=== PATIENT | female | born 1955 | race Caucasian/White ===

== ENCOUNTER 2016-05-01 09:00 | Emergency (ER) | payer MEDICARE ==
[~2016-05-01] VITALS: Ht 172.7 cm; Wt 65.0 kg
[~2016-05-01 09:00] MED LIST: CARV3.12 PO; COZA100T PO; LANTUSP SQ; LEVO.075 PO; LYRI50CA2 PO; MAGN250T13 PO; MYCO250 PO; OMEP20TA OR; PROG1CAP PO
[2016-05-01 09:01] VITALS: BP 178/87; PULSE 98; RESP 18; TEMP 98.2; O2SAT 98
[2016-05-01 10:12] VITALS: BP 191/100; PULSE 92; RESP 16; O2SAT 100
[2016-05-01] MEDS ORDERED: ONDANSETRON HCL 4 MG/2 ML VIAL IVP ONE (10:15)
[2016-05-01] MEDS ORDERED: SODIUM CHLORIDE 0.9% FLUSH 5 ML FLUSH IVF PRN (10:15)
[2016-05-01] MEDS ORDERED: HYDROmorphone HCL PF 1 MG/ML VIAL IVS ONE (10:15)
--- NOTE | 2016-05-01 10:21 | PD ---
HPI Chief Complaint: Flank/Kidney Pain Time Seen by Provider: 10:14 Travel History International Travel<30 days: No Contact w/Intl Traveler<30days: No Traveled to known affect area: No History of Present Illness HPI 61-year-old female with history of liver and breast cancer status post liver transplant, recent renal insufficiency and proteinuria, seen by a urologist at [facility] who did a biopsy on her yesterday of her left kidney, complicated by hematoma formation outside the renal capsule. She had been sent out because apparently they thought that the hematoma was stable, but this morning, she is experiencing hematuria, urinating clots, urinary urgency, and is having more pain in the left lower quadrant abdomen. She denies any fevers, vomiting, or other symptoms. She states her pain is currently a 5 out of 10. She denies any exacerbating or alleviating factors. Modifying Factors: None Associated Signs & Symptoms: Left lower quadrant abdominal pain, hematuria, urinary urgency Risk Factors: Renal biopsy yesterday, hematoma PFSH Past Medical History Anemia: Yes Arthritis: Yes Autoimmune Disease: No Cancer: Yes (left breast cancer liver) Cardiovascular Problems: No Chemotherapy: Yes (past 9 years ago for breast ca) Cirrhosis: Yes (AT HEP C) Diabetes: Yes Patient Takes Glucophage: Yes Diminished Hearing: No Endocrine: Yes (DIABETES) Gastrointestinal Disorders: Yes (hx of esophageal variosis) Glaucoma: No Genitourinary: No Hepatitis: Yes (c cirrhosis) Hiatal Hernia: No Hypertension: Yes Immune Disorder: No Medical other: Yes (GERD ; ARTHRITIS) Musculoskeletal: Yes (rheumatoid arthritis) Neurologic: No Psychiatric: Yes (anxiety) Reproductive: No Respiratory: No Immunizations Current: Yes Thyroid Disease: Yes Tetanus Vaccination: < 5 Years ?: Not : 1 Para: 2 Past Surgical History Abdominal Surgery: Yes (radiated tumor on the liver removed liver transplant) AICD: No Body Medical Devices: left breast Gynecologic Surgery: Yes (hysterectomy) Hysterectomy: Yes Joint Replacement: No Mastectomy: Yes (left) Pacemaker: No Thoracic Surgery: Yes (left breast mastectomy with reconstruction) Other Surgery: Yes (LEFT MASTECTOMY 2006; 2008 LEFT RECONSTRUCTION implant both ) Social History Alcohol Use: No Tobacco Use: No Substance Use: No Allergies-Medications (Allergen,Severity, Reaction): Coded Allergies: Shellfish (Verified Allergy, Severe, THROAT SWELLS UP, HIVES, 05/01/16) Nonsteroidal Anti-Inflammatory Agts (Verified Adverse Reaction, Severe, NAUSEA, DIZZINESS, 05/01/16) Zoloft (Verified Adverse Reaction, Severe, Nausea/Vomiting, 05/01/16) DIZZINESS Reglan (Unverified Adverse Reaction, Intermediate, NAUSEA AND VOMITING, 12/08) Uncoded Allergies: ZELNORM (Adverse Reaction, Severe, Nausea/Vomiting, 10/17/08) Reported Meds & Prescriptions Reported Meds & Active Scripts Active Reported Zolpidem (Zolpidem Tartrate) 10 Mg Tab 10 Mg PO HS PRN Prograf (Tacrolimus) 1 Mg Cap 1 Mg PO BID Sodium Bicarbonate 650 Mg Tab 650 Mg PO BID Lyrica (Pregabalin) 50 Mg Cap 50 Mg PO BID Polyethylene Glycol 300 1 Liq Liq Unknown Dose PO DAILY PRN Oxycodone (Oxycodone HCl) 5 Mg Cap 5 Mg PO Q8H PRN Omeprazole 20 Mg Tab 20 Mg PO DAILY Mycophenolate (Mycophenolate Mofetil) 250 Mg Cap 500 Mg PO BID Metformin (Metformin HCl) 500 Mg Tab 500 Mg PO DAILY With a meal Magnesium Oxide 400 Mg Cap 400 Mg PO DAILY Losartan (Losartan Potassium) 50 Mg Tab 50 Mg PO BID Lorazepam 1 Mg Tab 1 Mg PO BID Levothyroxine (Levothyroxine Sodium) 75 Mcg Tab 75 Mcg PO DAILY Carvedilol 3.125 Mg Tab 3.125 Mg PO BID Amlodipine (Amlodipine Besylate) 5 Mg Tab 5 Mg PO DAILY Review of Systems Except as stated in HPI: all other systems reviewed are Neg Physical Exam Narrative GENERAL: Elderly white female patient who is currently in mild distress. Awake , alert, oriented 3. SKIN: Warm and dry. HEAD: Atraumatic. Normocephalic. EYES: Pupils equal and round. No scleral icterus. No injection or drainage. ENT: No nasal bleeding or discharge. Mucous membranes pink and moist. NECK: Trachea midline. No JVD. CARDIOVASCULAR: Regular rate and rhythm. No murmur appreciated. RESPIRATORY: No accessory muscle use. Clear to auscultation. Breath sounds equal bilaterally. GASTROINTESTINAL: Abdomen soft, left lower quadrant tenderness without guarding or rebound, nondistended. Hepatic and splenic margins not palpable. MUSCULOSKELETAL: No obvious deformities. No clubbing. No cyanosis. No edema. NEUROLOGICAL: Awake and alert. No obvious cranial nerve deficits. Motor grossly within normal limits. Normal speech. PSYCHIATRIC: Appropriate mood and affect; insight and judgment normal. Data Data Last Documented VS Vital Signs Date Time Temp Pulse Resp B/P Pulse Ox O2 Delivery O2 Flow Rate FiO2 05/01/16 11:44 81 14 155/84 98 Room Air 05/01/16 09:01 98.2 Orders Urinalysis - C+S If Indicated (05/01/16 09:32) Complete Blood Count With Diff (05/01/16 10:14) Comprehensive Metabolic Panel (05/01/16 10:14) Lipase (05/01/16 10:14) Ct Abd/Pel W Iv Contrast(Rout) (05/01/16 10:14) Iv Access Insert/Monitor (05/01/16 10:14) Ecg Monitoring (05/01/16 10:14) Oximetry (05/01/16 10:14) Ondansetron Inj (Zofran Inj) (05/01/16 10:15) Sodium Chloride 0.9% Flush (Ns Flush) (05/01/16 10:15) Hydromorphone Pf Inj (Dilaudid Pf Inj) (05/01/16 10:15) Urine Culture (05/01/16 10:50) Iodixanol 320 Inj (Rad Ct) (Visipaque 32 (05/01/16 12:51) Urinary Catheter Insert/Apply (05/01/16 13:12) Labs Laboratory Tests Test 05/01/16 05/01/16 10:30 10:50 White Blood Count 7.8 TH/MM3 Red Blood Count 3.83 MIL/MM3 Hemoglobin 11.2 GM/DL Hematocrit 32.1 % Mean Corpuscular Volume 83.9 FL Mean Corpuscular Hemoglobin 29.4 PG Mean Corpuscular Hemoglobin 35.0 % Concent Red Cell Distribution Width 12.9 % Platelet Count 199 TH/MM3 Mean Platelet Volume 7.0 FL Neutrophils (%) (Auto) 78.5 % Lymphocytes (%) (Auto) 10.3 % Monocytes (%) (Auto) 7.9 % Eosinophils (%) (Auto) 2.8 % Basophils (%) (Auto) 0.5 % Neutrophils # (Auto) 6.1 TH/MM3 Lymphocytes # (Auto) 0.8 TH/MM3 Monocytes # (Auto) 0.6 TH/MM3 Eosinophils # (Auto) 0.2 TH/MM3 Basophils # (Auto) 0.0 TH/MM3 CBC Comment DIFF FINAL Differential Comment Sodium Level 137 MEQ/L Potassium Level 4.1 MEQ/L Chloride Level 105 MEQ/L Carbon Dioxide Level 23.4 MEQ/L Anion Gap 9 MEQ/L Blood Urea Nitrogen 19 MG/DL Creatinine 1.68 MG/DL Estimat Glomerular Filtration 31 ML/MIN Rate Random Glucose 132 MG/DL Calcium Level 8.4 MG/DL Total Bilirubin 0.5 MG/DL Aspartate Amino Transf 12 U/L (AST/SGOT) Alanine Aminotransferase 15 U/L (ALT/SGPT) Alkaline Phosphatase 56 U/L Total Protein 6.3 GM/DL Albumin 3.1 GM/DL Lipase 105 U/L Urine Color YELLOW Urine Turbidity CLOUDY Urine pH 6.0 Urine Specific [place] 1.006 Urine Protein 100 mg/dL Urine Glucose (UA) NEG mg/dL Urine Ketones NEG mg/dL Urine Occult Blood MOD Urine Nitrite NEG Urine Bilirubin NEG Urine Urobilinogen LESS THAN 2.0 MG/DL Urine Leukocyte Esterase SMALL Urine RBC 2 /hpf Urine WBC 6 /hpf Urine Renal Epithelial Cells /hpf Urine Bacteria MANY /hpf Microscopic Urinalysis Comment CULTURE INDICATED MDM Medical Decision Making Medical Screen Exam Complete: Yes Emergency Medical Condition: Yes Medical Record Reviewed: Yes Interpretation(s) Laboratory Tests Test 05/01/16 05/01/16 10:30 10:50 Red Blood Count 3.83 MIL/MM3 (4.00-5.30) Hemoglobin 11.2 GM/DL (11.6-15.3) Hematocrit 32.1 % (35.0-46.0) Neutrophils (%) (Auto) 78.5 % (16.0-70.0) Lymphocytes # (Auto) 0.8 TH/MM3 (1.0-4.8) Blood Urea Nitrogen 19 MG/DL (7-18) Creatinine 1.68 MG/DL (0.50-1.00) Estimat Glomerular Filtration 31 ML/MIN (>89) Rate Random Glucose 132 MG/DL (74-106) Calcium Level 8.4 MG/DL (8.5-10.1) Aspartate Amino Transf 12 U/L (15-37) (AST/SGOT) Total Protein 6.3 GM/DL (6.4-8.2) Albumin 3.1 GM/DL (3.4-5.0) Urine Turbidity CLOUDY (CLEAR) Urine Protein 100 mg/dL (NEG-TRACE) Urine Occult Blood MOD (NEG) Urine Leukocyte Esterase SMALL (NEG) Urine WBC 6 /hpf (0-5) Urine Bacteria MANY /hpf (NONE) Last 24 hours Impressions Abdomen/Pelvis CT 05/01/16 1014 Signed Impressions: Service Date/Time: Sunday, May 01, 2016 12:40 - CONCLUSION: 1. There is a small left perinephric hematoma surrounding the lower pole and within the inferior left perinephric space. No active extravasation is visualized and no collecting system injury is seen. The degree of blood products is not uncommon following kidney biopsy. It would be helpful to correlate with the postprocedure images to determine if it has increased. If clinically needed and symptoms persist consider followup CT to assess for change. 2. There are findings characteristic of prior liver transplantation, as above. 3. Urinary bladder remains distended even though a Garcia catheter is present. Suggest correlation clinically to ensure that it is not clamped. David Gonzalez MD Differential Diagnosis Left lower quadrant abdominal pain, nauseaenlarging hematoma versus postprocedural pain versus pyelonephritis/UTI versus other acute intra- abdominal processes Narrative Course Patient was given IV pain medication and Zofran. CAT scan ordered for further evaluation. It shows perinephric hematoma without active extravasation. Patient does have a UTI on lab work. Her BUN and creatinine is somewhat elevated, he'll which is the reason she was getting the renal biopsy done. The case was discussed with her urologist, Dr. Lemus, and at this point, there does not appear to be any acute issues. He agrees that the patient can be followed up as an outpatient with him, treatment for UTI. Return for any worsening in pain, or new symptoms as needed. The plan has been discussed with her and she states understanding. Diagnosis Primary Impression: UTI (urinary tract infection) Additional Impression: Perinephric hematoma Med/Other Pt SpecificInfo: Prescription(s) given Scripts Cephalexin (Keflex)500 Mg Izb113 Mg PO Q6H 7 Days Ref 0 Prov:Yaquelin Jeong MD 05/01/16 Disposition: 01 DISCHARGE HOME Condition: Stable Yaquelin Jeong MD May 01, 2016 10:21
[2016-05-01 10:37] LABS: AUTOMATED NEUTROPHIL # 6.1 TH/MM3 (1.8-7.7); BASOPHIL % 0.5 % (0.0-2.0); EOSINOPHIL # 0.2 TH/MM3 (0-0.4); EOSINOPHIL % 2.8 % (0.0-4.0); HEMATOCRIT 32.1 % (35.0-46.0); HEMO FLAGS DIFF FINAL; LYMPH % 10.3 % (9.0-44.0); LYMPHOCYTE # 0.8 TH/MM3 (1.0-4.8); MEAN CELL VOLUME 83.9 FL (80.0-100.0); MEAN CORPUSCULAR HEMOGLOBIN 29.4 PG (27.0-34.0); MONO % 7.9 % (0.0-8.0); NEUT % 78.5 % (16.0-70.0); PLATELET COUNT 199 TH/MM3 (150-450); RED BLOOD COUNT 3.83 MIL/MM3 (4.00-5.30); RED CELL DISTRIBUTION WIDTH 12.9 % (11.6-17.2); WHITE BLOOD COUNT 7.8 TH/MM3 (4.0-11.0)
[2016-05-01 10:38] VITALS: BP 163/99; PULSE 86; RESP 16; O2SAT 98
[2016-05-01 10:48] LABS: ANION GAP 9 MEQ/L (5-15); BICARBONATE 23.4 MEQ/L (21.0-32.0); BLOOD UREA NITROGEN 19 MG/DL (7-18); CHLORIDE 105 MEQ/L (98-107); GLOMERULAR FILTRATION RATE 31 ML/MIN (>89); POTASSIUM 4.1 MEQ/L (3.5-5.1); SODIUM (NA) 137 MEQ/L (136-145)
[2016-05-01 10:51] LABS: ALKALINE PHOSPHATASE 56 U/L (45-117); ALT (GPT) 15 U/L (10-53); AST (GOT) 12 U/L (15-37); TOTAL BILIRUBIN ADULT 0.5 MG/DL (0.2-1.0)
[2016-05-01 11:13] LABS: BACTERIA, URINE MANY /hpf; BLOOD, URINE MOD (NEG); GLUCOSE,URINE NEG (NEG); KETONE, URINE NEG (NEG); NITRITE,URINE NEG (NEG)
[2016-05-01 11:14] LABS: URINE COLOR YELLOW (YELLW/STRAW)
[2016-05-01 11:15] LABS: COMMENT (UR) CULTURE INDICATED; CULTURE IF INDICATED CULTURE INDICATED
[2016-05-01 11:44] VITALS: BP 155/84; PULSE 81; RESP 14; O2SAT 98
[2016-05-01] MEDS ORDERED: LOSA50TA PO (12:46)
[2016-05-01] MEDS ORDERED: MYCO250C PO (12:46)
[2016-05-01] MEDS ORDERED: OXYC1CAP PO (12:46)
[2016-05-01] MEDS ORDERED: OMEP20TA PO (12:46)
[2016-05-01] MEDS ORDERED: CARV3.12 PO (12:46)
[2016-05-01] MEDS ORDERED: [UNRECOGNIZED DRUG - CODE] PO (12:46)
[2016-05-01] MEDS ORDERED: LORA1TAB12 PO (12:46)
[2016-05-01] MEDS ORDERED: SODI650T PO (12:46)
[2016-05-01] MEDS ORDERED: LYRI50CA PO (12:46)
[2016-05-01] MEDS ORDERED: TACR1 PO (12:46)
[2016-05-01] MEDS ORDERED: ZOLP10TA3 PO (12:46)
[2016-05-01] MEDS ORDERED: LEVO75TA3 PO (12:46)
[2016-05-01] MEDS ORDERED: MAGN400C2 PO (12:46)
[2016-05-01] MEDS ORDERED: METF500T PO (12:46)
[2016-05-01] MEDS ORDERED: AMLO5TAB2 PO (12:46)
[2016-05-01] MEDS ORDERED: IODIXANOL 320 MG/ML 10 ML VIAL (for Rad CT) IV ONE (12:51)
--- NOTE | 2016-05-01 13:16 | RADRPT ---
EXAM DATE/TIME: 05/01/2016 12:40 [facility] COMPARISON: No previous studies available for comparison. INDICATIONS : Left lower quadrant pain and hematuria following kidney biopsy yesterday. IV CONTRAST: 50 cc Visipaque (iodixanol) IV ORAL CONTRAST: No oral contrast ingested. RADIATION DOSE: 8.21 CTDIvol (mGy) MEDICAL HISTORY : Carcinoma, breast. Cirrhosis. Hepatitis C.Hypertension, diabetes. SURGICAL HISTORY : Mastectomy, left. Hysterectomy.Liver transplant. ENCOUNTER: Initial ACUITY: 1 day PAIN SCALE: 6/10 LOCATION: Left lower quadrant TECHNIQUE: Volumetric scanning of the abdomen and pelvis was performed. Using automated exposure control and ad justment of the mA and/or kV according to patient size, radiation dose was kept as low as reasonably achievable to obtain optimal diagnostic quality images. Delayed imaging through the kidneys were obta ined. FINDINGS: LOWER LUNGS: The visualized lower lungs are clear. Partially visualized left breast implant is present. LIVER: Measures 17 cm in length. No focal lesion is seen. There are multiple clips at the liver IVC junction characteristic of prior liver transplant. There also multiple clips in the latoya hepatis region. Mil d pneumobilia is present. No gallbladder is visualized. There is no dilation of the biliary tree. SPLEEN: Normal size without lesion. PANCREAS: Within normal limits. KIDNEYS: Normal in size and shape. There is no mass, stone or hydronephrosis. There is a small left perinephr ic hematoma posteriorly and inferior leads are on the left kidney and inferior perinephric space. No active extravasation is identified and delayed imaging through the kidneys demonstrates no collecting system injury. ADRENAL GLANDS: Within normal limits. VASCULAR: There is no aortic aneurysm. There is mild atherosclerotic disease. BOWEL/MESENTERY: The stomach, small bowel, and colon demonstrate no acute abnormality. There is no free intraperitone al air or fluid. ABDOMINAL WALL: Within normal limits. RETROPERITONEUM: There is no lymphadenopathy. BLADDER: Garcia catheter is present within the urinary bladder and bladder remains distended with urine. No wal l thickening or mass. REPRODUCTIVE: The uterus is absent. No adnexal abnormality is seen. INGUINAL: There is no lymphadenopathy or hernia. MUSCULOSKELETAL: There are mild degenerative changes of the lumbar spine with mild leftward convex curvature. CONCLUSION: 1. There is a small left perinephric hematoma surrounding the lower pole and within the inferior left perinephric space. No active extravasation is visualized and no collecting system injury is seen. Th e degree of blood products is not uncommon following kidney biopsy. It would be helpful to correlate with the postprocedure images to determine if it has increased. If clinically needed and symptoms per sist consider followup CT to assess for change. 2. There are findings characteristic of prior liver transplantation, as above. 3. Urinary bladder remains distended even though a Garcia catheter is present. Suggest correlation cli nically to ensure that it is not clamped. David Gonzalez MD on May 01, 2016 at 13:07 Board Certified Radiologist. This report was verified electronically.
[2016-05-01] MEDS ORDERED: CEPH-460 PO (13:31)
[2016-05-01] MEDS ORDERED: ZOFR4TAB3 SL (13:36)
== END 2016-05-01 13:50 | disposition home or self-care (01) ==
LOC: NEPE 09:00
DX: N39.0 Urinary tract infection, site not specified (principal); S37.012A Minor contusion of left kidney, initial encounter; Z98.890 Other specified postprocedural states; R10.32 Left lower quadrant pain; E11.9 Type 2 diabetes mellitus without complications; I10 Essential (primary) hypertension; E07.9 Disorder of thyroid, unspecified; Z86.2 Personal history of diseases of the blood and blood-forming organs and certain disorders involving the immune mechanism; Z87.39 Personal history of other diseases of the musculoskeletal system and connective tissue; Z85.3 Personal history of malignant neoplasm of breast; Z85.05 Personal history of malignant neoplasm of liver; Z87.19 Personal history of other diseases of the digestive system; Z86.59 Personal history of other mental and behavioral disorders
CPT/HCPCS: 51702; 74177; 80053; 81001; 83690; 85025; 87086; 96374; 96375; 99284; J1170; J2405; Q9967

== ENCOUNTER 2017-01-10 08:48 | Emergency (ER) | payer MEDICARE ==
[~2017-01-10] VITALS: Ht 172.7 cm; Wt 69.7 kg
[~2017-01-10 08:48] MED LIST changes: +AMLO5TAB2 PO; +CEPH-460 PO; -COZA100T PO; -LANTUSP SQ; -LEVO.075 PO; +LEVO75TA3 PO; +LORA1TAB12 PO; +LOSA50TA PO; +LYRI50CA PO; -LYRI50CA2 PO; -MAGN250T13 PO; +MAGN400C2 PO; +METF500T PO; -MYCO250 PO; +MYCO250C PO; -OMEP20TA OR; +OMEP20TA93 PO; +OXYC1CAP PO; -PROG1CAP PO; +SODI650T PO; +TACR1 PO; +ZOFR4TAB3 SL; +ZOLP10TA3 PO; +[UNRECOGNIZED DRUG - CODE] PO
[2017-01-10 08:50] VITALS: BP 158/81; PULSE 90; RESP 16; TEMP 98.1; O2SAT 97
[2017-01-10] MEDS ORDERED: MAGO400T2 PO (09:12)
[2017-01-10] MEDS ORDERED: SERT25TA83 PO (09:12)
[2017-01-10] MEDS ORDERED: ACETAMINOPHEN/HYDROcodone 325 MG/5 MG TAB PO ONE (09:15)
--- NOTE | 2017-01-10 09:16 | PD ---
HPI Chief Complaint: Headache Time Seen by Provider: 09:13 Travel History International Travel<30 days: No Contact w/Intl Traveler<30days: No History of Present Illness HPI Patient presents with complaints of headache behind her right eye for 3 days. States his worst headache she's ever had. No history of migraines. Positive photophobia. Denies nausea or vomiting. Denies aura. Denies any head trauma. Patient took Last night without relief. PFSH Past Medical History Anemia: Yes Arthritis: Yes Autoimmune Disease: No Cancer: Yes (left breast cancer liver) Cardiovascular Problems: No Chemotherapy: Yes (past 9 years ago for breast ca) Cirrhosis: Yes (AT HEP C) Diabetes: Yes Diminished Hearing: No Endocrine: Yes (DIABETES) Gastrointestinal Disorders: Yes (hx of esophageal variosis) Glaucoma: No Genitourinary: No Hepatitis: Yes (c cirrhosis) Hiatal Hernia: No Hypertension: Yes Immune Disorder: No Musculoskeletal: Yes (rheumatoid arthritis) Neurologic: No Psychiatric: Yes (anxiety) Reproductive: No Respiratory: No Immunizations Current: Yes Thyroid Disease: Yes : 1 Para: 2 Past Surgical History Abdominal Surgery: Yes (radiated tumor on the liver removed liver transplant) AICD: No Body Medical Devices: left breast Gynecologic Surgery: Yes (hysterectomy) Hysterectomy: Yes Joint Replacement: No Mastectomy: Yes (left) Pacemaker: No Thoracic Surgery: Yes (left breast mastectomy with reconstruction) Other Surgery: Yes (LEFT MASTECTOMY 2006; 2008 LEFT RECONSTRUCTION implant both ) Social History Alcohol Use: No Tobacco Use: No Substance Use: No Allergies-Medications (Allergen,Severity, Reaction): Coded Allergies: shellfish derived (Unverified Allergy, Severe, THROAT SWELLS UP, HIVES, ) diclofenac (Unverified Adverse Reaction, Severe, NAUSEA, DIZZINESS, ) etodolac (Unverified Adverse Reaction, Severe, NAUSEA, DIZZINESS, 01/10/17 ) flurbiprofen (Unverified Adverse Reaction, Severe, NAUSEA, DIZZINESS, ) ibuprofen (Unverified Adverse Reaction, Severe, NAUSEA, DIZZINESS, ) indomethacin (Unverified Adverse Reaction, Severe, NAUSEA, DIZZINESS, ) ketoprofen (Unverified Adverse Reaction, Severe, NAUSEA, DIZZINESS, ) ketorolac (Unverified Adverse Reaction, Severe, NAUSEA, DIZZINESS, ) naproxen (Unverified Adverse Reaction, Severe, NAUSEA, DIZZINESS, 01/10/17 ) oxaprozin (Unverified Adverse Reaction, Severe, NAUSEA, DIZZINESS, ) sertraline (Unverified Adverse Reaction, Severe, Nausea/Vomiting, 01/10/17 ) DIZZINESS metoclopramide (Unverified Adverse Reaction, Intermediate, NAUSEA AND VOMITING, 01/10/17) Uncoded Allergies: ZELNORM (Adverse Reaction, Severe, Nausea/Vomiting, 10/17/08) Reported Meds & Prescriptions Reported Meds & Active Scripts Active Reported Magox 400 (Magnesium Oxide) 400 Mg Tablet 1 Tab PO DAILY Sertraline (Sertraline HCl) 25 Mg Tab 25 Mg PO DAILY Zolpidem (Zolpidem Tartrate) 10 Mg Tab 10 Mg PO HS PRN Prograf (Tacrolimus) 1 Mg Cap 1 Mg PO BID Lyrica (Pregabalin) 50 Mg Cap 50 Mg PO BID Omeprazole 20 Mg Tab 20 Mg PO DAILY Mycophenolate (Mycophenolate Mofetil) 250 Mg Cap 500 Mg PO QID Metformin (Metformin HCl) 500 Mg Tab 500 Mg PO DAILY With a meal Losartan (Losartan Potassium) 50 Mg Tab 50 Mg PO BID Lorazepam 1 Mg Tab 1 Mg PO BID Levothyroxine (Levothyroxine Sodium) 75 Mcg Tab 75 Mcg PO DAILY Carvedilol 3.125 Mg Tab 3.125 Mg PO BID Review of Systems General / Constitutional: No: Fever Eyes: No: Visual changes HENT: Positive: Headaches Cardiovascular: No: Chest Pain or Discomfort Respiratory: No: Shortness of Breath Gastrointestinal: No: Abdominal Pain Genitourinary: No: Dysuria Musculoskeletal: No: Pain Skin: No Rash Neurologic: No: Weakness Psychiatric: No: Depression Endocrine: No: Polydipsia Hematologic/Lymphatic: No: Easy Bruising Physical Exam Narrative GENERAL: Well-nourished SKIN: Focused skin assessment warm/dry. HEAD: Atraumatic. Normocephalic. EYES: Pupils equal and round. No scleral icterus. No injection or drainage. ENT: No nasal bleeding or discharge. Mucous membranes pink and moist. NECK: Trachea midline. No JVD. CARDIOVASCULAR: Regular rate and rhythm. No murmur appreciated. RESPIRATORY: No accessory muscle use. Clear to auscultation. Breath sounds equal bilaterally. GASTROINTESTINAL: Abdomen soft, non-tender, nondistended. Hepatic and splenic margins not palpable. MUSCULOSKELETAL: No obvious deformities. No clubbing. No cyanosis. No edema. NEUROLOGICAL: Awake and alert. No obvious cranial nerve deficits. Motor grossly within normal limits. Normal speech. PSYCHIATRIC: Appropriate mood and affect; insight and judgment normal. Data Data Last Documented VS Vital Signs Date Time Temp Pulse Resp B/P (MAP) Pulse Ox O2 Delivery O2 Flow Rate FiO2 01/10/17 13:33 132/77 (95) 01/10/17 13:10 74 18 97 Room Air 01/10/17 08:[address] Brain W/O Iv Contrast(Rout) (01/10/17 ) Acetamin-Hydrocod 325-5 Mg (Evans 5-325 (01/10/17 09:15) Hydromorphone Pf Inj (Dilaudid Pf Inj) (01/10/17 10:00) Ondansetron Inj (Zofran Inj) (01/10/17 10:00) Hydromorphone Pf Inj (Dilaudid Pf Inj) (01/10/17 11:15) Ondansetron Inj (Zofran Inj) (01/10/17 11:15) Clonidine (Catapres) (01/10/17 12:30) MDM Medical Decision Making Medical Screen Exam Complete: Yes Emergency Medical Condition: Yes Differential Diagnosis Cluster headache, tension headache, migraine headache, CVA Narrative Course Assessment and plan discussed with patient at bedside. Last [address] 01/10/17 0000 Signed Impressions: Service Date/Time: Tuesday, January 10, 2017 09:25 - CONCLUSION: Normal noncontrast head CT. David Sánchez MD Headache resolved with Dilaudid and Zofran. Patient continues to have some right eye pain without significant visual changes. 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 Diagnosis Primary Impression: Headache Qualified Codes: R51 - Headache Patient Instructions: General Instructions Additional Instructions: Encouraged rest fluids and Motrin. Keep regular scheduled appointment with ophthalmology. Follow-up with PCP. Return to emergency with any onset of new symptoms. Med/Other Pt SpecificInfo: No Meds Exist/No RX given Disposition: DISCHARGE HOME Condition: Good Beau Riggs MD Jan 10, 2017 09:16
--- NOTE | 2017-01-10 09:38 | RADRPT ---
EXAM DATE/TIME: 01/10/2017 09:25 [facility] COMPARISON: No previous studies available for comparison. INDICATIONS : Right sided headache radiating to right facial area. RADIATION DOSE: 59.69 CTDIvol (mGy) MEDICAL HISTORY : Carcinoma, breast. Hepatitis C. Cirrhosis.Hypertension. Liver tumor. Diabetes. SURGICAL HISTORY : Mastectomy, left. Hysterectomy.Tumor removed from liver. Cataract. ENCOUNTER: Initial ACUITY: 3 days PAIN SCALE: 8/10 LOCATION: Right cranial TECHNIQUE: Multiple contiguous axial images were obtained of the head. Using automated exposure control and adj ustment of the mA and/or kV according to patient size, radiation dose was kept as low as reasonably a chievable to obtain optimal diagnostic quality images. DICOM format image data is available electro nically for review and comparison. FINDINGS: CEREBRUM: The ventricles are normal for age. No evidence of midline shift, mass lesion, hemorrhage or acute in farction. No extra-axial fluid collections are seen. POSTERIOR FOSSA: The cerebellum and brainstem are intact. The 4th ventricle is midline. The cerebellopontine angle i s unremarkable. EXTRACRANIAL: The visualized portion of the orbits is intact. SKULL: The calvaria is intact. No evidence of skull fracture. CONCLUSION: Normal noncontrast head CT. David Sánchez MD on January 10, 2017 at 9:35 Board Certified Radiologist. This report was verified electronically.
[2017-01-10] MEDS ORDERED: ONDANSETRON HCL 4 MG/2 ML VIAL IV PUSH ONE ×2 (10:00→11:15)
[2017-01-10] MEDS ORDERED: HYDROmorphone HCL PF 0.5 MG/0.5 ML SYRINGE IV PUSH ONE ×2 (10:00→11:15)
[2017-01-10 10:11] VITALS: BP 160/98; PULSE 77; RESP 18; O2SAT 95
[2017-01-10 10:42] VITALS: BP 165/97; PULSE 72; RESP 18; O2SAT 97
[2017-01-10 12:07] VITALS: BP 170/95; PULSE 63; RESP 18; O2SAT 97
[2017-01-10] MEDS ORDERED: cloNIDine HCL 0.1 MG TAB PO ONE (12:30)
[2017-01-10 13:10] VITALS: BP 175/92; PULSE 74; RESP 18; O2SAT 97
[2017-01-10 13:33] VITALS: BP 132/77
== END 2017-01-10 14:12 | disposition home or self-care (01) ==
LOC: PHED 08:48
DX: R51 Headache (principal); E11.9 Type 2 diabetes mellitus without complications; I10 Essential (primary) hypertension; Z85.3 Personal history of malignant neoplasm of breast; Z79.84 Long term (current) use of oral hypoglycemic drugs
CPT/HCPCS: 70450; 96374; 96375; 96376; 99285; J1170; J2405

== ENCOUNTER 2017-12-22 14:56 | Observation (INO) ==
[2017-12-22] MEDS ORDERED: hydrALAZINE HCl Inj 20 MG/ML Vial IV.PUSH ONE (15:57)
[2017-12-22 16:14] LABS: Baso # (Auto) 0.2 th/mm3 (0.0-0.2); Baso % (Auto) 3.2 % (0.0-2.0); Eos # (Auto) 0.3 th/mm3 (0.0-0.4); Hematocrit 33.8 % (35.0-46.0); Hemoglobin 11.9 gm/dL (11.6-15.3); Mean Corpuscular HGB Conc 35.2 % (32.0-36.0); Mean Corpuscular Hemoglobin 30.6 pg (27.0-34.0); Mean Corpuscular Volume 87.1 fL (80.0-100.0); Mean Platelet Volume 7.9 fL (7.0-11.0); Mono # (Auto) 0.5 th/mm3 (0.0-0.9); Mono % (Auto) 9.5 % (0.0-8.0); Neut # (Auto) 3.4 th/mm3 (1.8-7.7); Neut % (Auto) 63.3 % (16.0-70.0); Platelet Count 229 th/mm3 (150-450); Red Blood Count 3.88 mil/mm3 (4.00-5.30); Red Cell Distribution Width 13.3 % (11.6-17.2); White Blood Count 5.4 th/mm3 (4.0-11.0)
[2017-12-22 16:25] LABS: Chloride 103 meq/L (98-107); Potassium 4.4 meq/L (3.5-5.1); Sodium 137 meq/L (136-145)
--- NOTE | 2017-12-22 16:29 | XR ---
EXAM DATE: 12/22/2017 4:13 PM EDT AGE/SEX: 62 years / Female INDICATIONS: Chest pain. CLINICAL DATA: This is the patient's initial encounter. Patient reports that signs and symptoms have been present for 1 day and indicates a pain score of 5/10. MEDICAL/SURGICAL HISTORY: Carcinoma, breast. Cirrhosis. Hepatitis C. hypertension, diabetes M astectomy, left. Hysterectomy. Liver transplant. COMPARISON: POI, XR CHEST PA AND LAT, 07/01/2017. . FINDINGS: Portable AP view of the chest demonstrates a normal-sized cardiac silhouette. No effusion, consolidat ion, or pneumothorax is identified. The bones and soft tissues demonstrate no acute finding. EKG line s overlie the patient. CONCLUSION: No acute cardiopulmonary abnormality is identified name R. Electronically signed by: David Gonzalez MD 12/22/2017 4:27 PM EDT
[2017-12-22 16:32] LABS: Activated Partial Thrombo Time 21.7 sec (24.3-30.1)
[2017-12-22 16:33] LABS: Calcium 8.2 mg/dL (8.5-10.1)
[2017-12-22 16:34] LABS: Albumin 3.4 g/dL (3.4-5.0); Anion Gap 8 meq/L (5-15); Blood Urea Nitrogen 26 mg/dL (7-18); Carbon Dioxide 25.8 meq/L (21.0-32.0); Glucose,Random 108 mg/dL (74-106)
[2017-12-22 16:36] LABS: Alanine Aminotransferase 17 U/L (10-53); Aspartate Aminotransferase 16 U/L (15-37); Glomerular Filtration Rate 30 mL/min (>89)
[2017-12-22 16:38] LABS: Total Protein 6.7 g/dL (6.4-8.2)
[2017-12-22 16:39] LABS: Alkaline Phosphatase 61 U/L (45-117)
[2017-12-22 16:45] LABS: Creatine Kinase 85 U/L (26-192)
--- NOTE | 2017-12-22 17:01 | ED ---
HPI General Chief Complaint: Neuro Symptoms/Deficit Stated Complaint: Neurosymptoms x this am Time Seen by Provider: 12/22/17 15:50 History of Present Illness HPI Narrative: This is a 62-year-old female with history of liver transplant, hypertension, diabetes mellitus, renal insufficiency, who presents with complaints of left upper extremity numbness and tingling as well as blurry vision. According to the patient she reports that the numbness and tingling to her left upper extremity started 3 days ago. She denies any weakness. She does have a history of bulging disks in her neck. She denies any recent injury. Patient does state that she was at [facility] to have a biopsy of her liver and when they went to preop her, she was noted to have uncontrolled hypertension. They did send her to the ER and performed an EKG. Reportedly, she received a call from [facility] and her heart team who told her that she needed to get an echocardiogram of her heart. 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 She is not complaining of chest pain, chest pressure. The patient's blood pressure was noted to be elevated here today. When asked about her blurry vision, patient states she does see a retinal specialist however feels that her vision is worse than her baseline. Related Data Home Medications Medication Instructions Recorded Confirmed carvedilol 3.125 mg PO BID 12/22/17 12/22/17 levothyroxine 75 mcg PO DAILY 12/22/17 12/22/17 lorazepam 1 mg PO BID 12/22/17 12/22/17 losartan 100 mg PO DAILY 12/22/17 12/22/17 magnesium oxide 400 mg PO TID 12/22/17 12/22/17 metformin 250 mg PO DAILY 12/22/17 12/22/17 mycophenolate mofetil 250 mg PO QID 12/22/17 12/22/17 omeprazole 20 mg PO DAILY 12/22/17 12/22/17 oxycodone 5 mg PO Q4-6H PRN 12/22/17 12/22/17 polyethylene glycol 3350 17 g PO DAILY PRN 12/22/17 12/22/17 pregabalin 50 mg PO BID 12/22/17 12/22/17 sodium bicarbonate 650 mg PO BID 12/22/17 12/22/17 tacrolimus 2 mg PO Q12H 12/22/17 12/22/17 zolpidem 10 mg PO DAILY NEB 12/22/17 12/22/17 Allergies Allergy/AdvReac Type Severity Reaction Status Date / Time shellfish derived Allergy Severe THROAT Verified 12/22/17 16:31 SWELLS UP, HIVES Review of Systems ROS: all other systems reviewed are negative Constitutional Denies system reviewed and no additional complaints, except as docu Eyes Reports blurry vision, Denies diplopia and Denies eye pain ENT Denies facial pain and Denies neck pain Cardiovascular Denies chest pain, Denies rapid heart rate, Denies palpitations and Reports dyspnea (Occasional) Respiratory Denies chest congestion, Denies cough and Reports dyspnea (Occasional) Gastrointestinal Denies abdominal pain, Denies nausea and Denies vomiting Genitourinary Reports system reviewed and no additional complaints, except as docu Musculoskeletal Denies back pain, Denies neck pain, Denies numbness and Denies tingling Neurologic Denies headache(s), Denies focal weakness, Reports sensory deficit (Numbness and tingling to the left upper extremity.), Denies weakness and Reports other ( Blurry vision worse than normal.) [facility] Medical History Medical History Breast cancer (Acute) H/O: hysterectomy (Acute) Surgical History Surgical History History of left mastectomy (Acute) Hx of liver transplant (Acute) Hx of cholecystectomy (Acute) Social History Social History Substance History: No History of Abuse Smoking Status: Never smoker How Often Do You Have a Drink Containing Alcohol: 2 to 4 times a month Recent Travel in [facility] within the Last 8 Weeks: No Recent Out of Country Travel within the Last 8 Weeks: No Immunization History Tetanus Immunization: <5 Years Exam Narrative Exam Narrative: GENERAL: Well-developed well-nourished female in no acute respiratory distress. SKIN: Focused skin assessment warm/dry. HEAD: Atraumatic. Normocephalic. EYES: No photophobia no scleral icterus. No injection or drainage. ENT: No nasal bleeding or discharge. Mucous membranes pink and moist. NECK: Trachea midline. No JVD. Supple. CARDIOVASCULAR: Regular rate and rhythm. No murmur appreciated. RESPIRATORY: No accessory muscle use. Clear to auscultation. Breath sounds equal bilaterally. GASTROINTESTINAL: Abdomen soft, non-tender, nondistended. MUSCULOSKELETAL: No obvious deformities. No clubbing. No cyanosis. No edema. NEUROLOGICAL: Awake and alert. No obvious cranial nerve deficits. Motor grossly within normal limits. Normal speech. Patient has slight decreased sensation over her left deltoid distribution. The rest of her upper extremity is within normal limits. Course Initial Documented Vital Signs Temperature 98.7 F 12/22/17 15:13 Respiratory Rate 16 12/22/17 15:13 Blood Pressure 186/92 H 12/22/17 15:13 Pulse Oximetry 98 12/22/17 15:13 Last Documented Vital Signs Temperature 98.7 F 12/22/17 15:13 Pulse Rate 78 12/22/17 17:33 Respiratory Rate 16 12/22/17 17:33 Blood Pressure 152/77 H 12/22/17 17:33 Pulse Oximetry 98 12/22/17 17:33 Medical Decision Making MDM Narrative Medical decision making narrative: 62-year-old female with history of liver transplant, hypertension, dyslipidemia, diabetes mellitus, who presents today with complaints of elevated blood pressure. She was also told by her doctors at [facility] that she needed a 2D cardiac echo. The patient had uncontrolled hypertension. She was given hydralazine, 20 mg IV x1 dose and 1 mg of Ativan. Her pressures come down nicely into the 150s over 70s. She will be admitted to the hospital for blood pressure control. She was discussed with Dr. mendoza, [place] [facility], who will admit under observation and evaluate for possible 2D cardiac echo. Medical Screen Exam Complete: Yes Emergency Medical Condition: Yes Differential Diagnosis Differential Diagnosis: Hypertensive urgency versus metabolic derangement versus ACS Lab Data Result diagrams: 12/22/17 16:05 12/22/17 16:05 Lab Results 12/22/17 12/22/17 12/22/17 Range/Units 16:05 16:05 16:05 CBC w Diff Auto diff final WBC 5.4 (4.0-11.0) th/mm3 RBC 3.88 L (4.00-5.30) mil/mm3 Hgb 11.9 (11.6-15.3) gm/dL Hct 33.8 L (35.0-46.0) % MCV 87.1 (80.0-100.0) fL MCH 30.6 (27.0-34.0) pg MCHC 35.2 (32.0-36.0) % RDW 13.3 (11.6-17.2) % Plt Count 229 (150-450) th/mm3 MPV 7.9 (7.0-11.0) fL Neut % (Auto) 63.3 (16.0-70.0) % Lymph % (Auto) 19.0 (9.0-44.0) % [place] % (Auto) 9.5 H (0.0-8.0) % Eos % (Auto) 5.0 H (0.0-4.0) % Baso % (Auto) 3.2 H (0.0-2.0) % Neut # (Auto) 3.4 (1.8-7.7) th/mm3 Lymph # (Auto) 1.0 (1.0-4.8) th/mm3 [place] # (Auto) 0.5 (0.0-0.9) th/mm3 Eos # (Auto) 0.3 (0.0-0.4) th/mm3 Baso # (Auto) 0.2 (0.0-0.2) th/mm3 WBC Differential . Differential Comment . PT 10.0 (9.8-11.6) sec INR 1.0 Ratio APTT 21.7 L (24.3-30.1) sec Sodium 137 (136-145) meq/L Potassium 4.4 (3.5-5.1) meq/L Chloride 103 (98-107) meq/L Carbon Dioxide 25.8 (21.0-32.0) meq/L Anion Gap 8 (5-15) meq/L BUN 26 H (7-18) mg/dL Creatinine 1.70 H (0.50-1.00) mg/dL Estimated GFR 30 L (>89) mL/min Random Glucose 108 H (74-106) mg/dL Calcium 8.2 L (8.5-10.1) mg/dL Total Bilirubin 0.3 (0.2-1.0) mg/dL AST 16 (15-37) U/L ALT 17 (10-53) U/L Alkaline Phosphatase 61 (45-117) U/L Total Creatine Kinase 85 (26-192) U/L Troponin I Less than 0.02 L (0.02-0.05) ng/mL Total Protein 6.7 (6.4-8.2) g/dL Albumin 3.4 (3.4-5.0) g/dL Ur Collection Type Urine Color (Yellw/Straw) Urine Clarity (Clear) Urine pH (5.0-8.5) Ur Specific [place] (1.002-1.035) Urine Protein (Neg-Trace) mg/dL Urine Glucose (UA) (Negative) mg/dL Urine Ketones (Negative) mg/dL Urine Occult Blood (Negative) Urine Nitrate (Negative) Urine Bilirubin (Negative) Urine Urobilinogen (Less than 2) mg/dL Ur Leukocyte Esterase (Negative) Urine WBC (0-5) /hpf Ur Squamous Epith Cells (0-5) /hpf Micro UA Comment Ur Microscopic Review Urine Culture Comments Urine Collection Time hours 12/22/17 Range/Units 16:58 CBC w Diff WBC (4.0-11.0) th/mm3 RBC (4.00-5.30) mil/mm3 Hgb (11.6-15.3) gm/dL Hct (35.0-46.0) % MCV (80.0-100.0) fL MCH (27.0-34.0) pg MCHC (32.0-36.0) % RDW (11.6-17.2) % Plt Count (150-450) th/mm3 MPV (7.0-11.0) fL Neut % (Auto) (16.0-70.0) % Lymph % (Auto) (9.0-44.0) % [place] % (Auto) (0.0-8.0) % Eos % (Auto) (0.0-4.0) % Baso % (Auto) (0.0-2.0) % Neut # (Auto) (1.8-7.7) th/mm3 Lymph # (Auto) (1.0-4.8) th/mm3 [place] # (Auto) (0.0-0.9) th/mm3 Eos # (Auto) (0.0-0.4) th/mm3 Baso # (Auto) (0.0-0.2) th/mm3 WBC Differential Differential Comment PT (9.8-11.6) sec INR Ratio APTT (24.3-30.1) sec Sodium (136-145) meq/L Potassium (3.5-5.1) meq/L Chloride (98-107) meq/L Carbon Dioxide (21.0-32.0) meq/L Anion Gap (5-15) meq/L BUN (7-18) mg/dL Creatinine (0.50-1.00) mg/dL Estimated GFR (>89) mL/min Random Glucose (74-106) mg/dL Calcium (8.5-10.1) mg/dL Total Bilirubin (0.2-1.0) mg/dL AST (15-37) U/L ALT (10-53) U/L Alkaline Phosphatase (45-117) U/L Total Creatine Kinase (26-192) U/L Troponin I (0.02-0.05) ng/mL Total Protein (6.4-8.2) g/dL Albumin (3.4-5.0) g/dL Ur Collection Type Clean catch Urine Color Yellow (Yellw/Straw) Urine Clarity Clear (Clear) Urine pH 6.5 (5.0-8.5) Ur Specific [place] 1.010 (1.002-1.035) Urine Protein 100 H (Neg-Trace) mg/dL Urine Glucose (UA) Negative (Negative) mg/dL Urine Ketones Negative (Negative) mg/dL Urine Occult Blood Negative (Negative) Urine Nitrate Negative (Negative) Urine Bilirubin Negative (Negative) Urine Urobilinogen 0.2 (Less than 2) mg/dL Ur Leukocyte Esterase Negative (Negative) Urine WBC 0-5 (0-5) /hpf Ur Squamous Epith Cells 0-5 (0-5) /hpf Micro UA Comment Culture not ind Ur Microscopic Review Microscopic reviewed Urine Culture Comments Culture not ind Urine Collection Time 1705 hours Imaging Data Radiologist's impression: Chest X-Ray 12/22/17 15:51 CONCLUSION: No acute cardiopulmonary abnormality is identified name R. Head CT 12/22/17 15:51 CONCLUSION: 1. No acute intracranial abnormalities. . Discharge Plan Discharge Disposition Patient Disposition: 30 Still Patient Discharge Details Diagnosis: Hypertensive urgency, Hypertension, Diabetes mellitus, History of liver transplant, Chronic kidney disease Physicians Team ED Provider: Yovany Quintero Primary Care Provider: Jason Rivera Rxs /Orders / Referrals /Forms Prescriptions: No Action metformin 500 mg Tablet 250 mg PO DAILY RF: 0 mycophenolate mofetil 250 mg Capsule 250 mg PO QID RF: 0 carvedilol 3.125 mg Tablet 3.125 mg PO BID RF: 0 magnesium oxide 400 mg (241.3 mg magnesium) Tablet 400 mg PO TID RF: 0 lorazepam 1 mg Tablet 1 mg PO BID RF: 0 losartan 100 mg Tablet 100 mg PO DAILY RF: 0 omeprazole 20 mg Tablet,Delayed Release (Dr/Ec) 20 mg PO DAILY RF: 0 levothyroxine 75 mcg Capsule 75 mcg PO DAILY RF: 0 sodium bicarbonate 650 mg Tablet 650 mg PO BID RF: 0 zolpidem 10 mg Tablet 10 mg PO DAILY NEB RF: 0 tacrolimus 0.5 mg Capsule 2 mg PO Q12H RF: 0 oxycodone 5 mg Tablet 5 mg PO Q4-6H PRN (Reason: Constipation) RF: 0 pregabalin 50 mg Capsule 50 mg PO BID RF: 0 polyethylene glycol 3350 8.5 gram Powder In Packet 17 g PO DAILY PRN (Reason: Constipation) RF: 0 Discharge Interventions Interventions: Vital Signs Last Done: 12/22/17 17:33 Status ED Status: With Doctor
[2017-12-22 17:03] LABS: Bilirubin,Urine Negative (Negative); Clarity,Urine Clear (Clear); Color,Urine Yellow (Yellw/Straw); Glucose,Urine (UA) Negative (Negative); Leukocyte Esterase,Urine Negative (Negative); Nitrite,Urine Negative (Negative); PH,Urine 6.5 (5.0-8.5); Urobilinogen,Urine 0.2 mg/dL (Less than 2)
[2017-12-22 17:13] LABS: Collection Time,Urine 1705 hours
[2017-12-22 17:18] LABS: Squamous Epithelial Cell,Urine 0-5 /hpf (0-5); WBC,Urine 0-5 /hpf (0-5)
--- NOTE | 2017-12-22 18:13 | CT ---
EXAM DATE: 12/22/2017 6:03 PM EDT AGE/SEX: 62 years / Female INDICATIONS: Cephalgia. Numbness left arm. Blurred vision. CLINICAL DATA: This is the patient's initial encounter. Patient reports that signs and symptoms have been present for 1 week and indicates a pain score of 0/10. MEDICAL/SURGICAL HISTORY: Carcinoma, breast. None. RADIATION DOSE: 54.11 CTDI (mGy) COMPARISON: [facility], CT BRAIN W/O CONTRAST, 01/10/2017. . TECHNIQUE: CT of the head without contrast. Using automated exposure control and adjustment of the mA and/or kV according to patient size, radiation dose was kept as low as reasonably achievable to ob tain optimal diagnostic quality images. DICOM format image data is available electronically for revi ew and comparison. FINDINGS: Cerebrum: The ventricles are normal for age. No evidence of midline shift, mass lesion, hemorrhage or acute infarction. No extraaxial fluid collections are seen. Posterior Fossa: The cerebellum and brainstem are intact. The 4th ventricle is midline. The cerebe llopontine angle is unremarkable. Extracranial: The visualized portion of the orbits is intact. Skull: The calvaria is intact. No evidence of skull fracture. CONCLUSION: 1. No acute intracranial abnormalities. . Electronically signed by: Chad Roberto MD 12/22/2017 6:12 PM EDT
[2017-12-22] MEDS ORDERED: hydrALAZINE HCl Inj 20 MG/ML Vial IV.PUSH PRN (19:39)
[2017-12-22] MEDS ORDERED: Dextrose 50% in Water 50 ML Vial IV.PUSH PRN (19:41)
[2017-12-22] MEDS ORDERED: Acetaminophen 325 MG Tablet PO PRN (19:48)
[2017-12-22] MEDS ORDERED: Bisacodyl 10 MG Supp RECTAL PRN (19:48)
[2017-12-22] MEDS ORDERED: Sodium Bicarbonate 650 MG Tablet PO SCH (21:00)
[2017-12-22] MEDS: Senna/Docusate Sodium 8.6/50 MG Tablet PO SCH (22:57)
[2017-12-22] MEDS: LORazepam 1 MG Tablet PO SCH (22:57)
[2017-12-22] MEDS: Pregabalin 25 MG Capsule PO SCH (22:58)
[2017-12-22] MEDS: Mycophenolate Mofetil 250 MG Capsule PO SCH (22:59)
[2017-12-22] MEDS: Insulin NovoLOG Aspart Correctional Sugar Inj SQ SCH (23:16)
[2017-12-23] MEDS: Levothyroxine 75 MCG Tablet PO SCH (06:39)
[2017-12-23] MEDS ORDERED: Polyethylene Glycol 3350 17 GM Packet PO PRN (09:00)
[2017-12-23] MEDS: Senna/Docusate Sodium 8.6/50 MG Tablet PO SCH ×2 (09:02→20:51)
[2017-12-23] MEDS: Magnesium Oxide 400 MG Tablet PO SCH ×3 (09:02→17:27)
[2017-12-23] MEDS: LORazepam 1 MG Tablet PO SCH ×2 (09:03→20:41)
[2017-12-23] MEDS: Pantoprazole Sodium 20 MG DR Tablet PO SCH (09:03)
[2017-12-23] MEDS: Pregabalin 25 MG Capsule PO SCH ×2 (09:03→20:41)
[2017-12-23] MEDS: Insulin NovoLOG Aspart Correctional Sugar Inj SQ SCH ×4 (09:07→20:43)
--- NOTE | 2017-12-23 09:54 | US ---
EXAM DATE: 12/23/2017 9:43 AM EDT AGE/SEX: 62 years / Female INDICATIONS: Cerebrovascular accident. CLINICAL DATA: This is the patient's initial encounter. Patient reports that signs and symptoms have been present for 1 day and indicates a pain score of 0/10. MEDICAL/SURGICAL HISTORY: . Breast cancer. Hysterectomy. Mastectomy, left. Liver transplant. COMPARISON: No prior exams available for comparison. VELOCITY PARAMETERS: ICA/CCA Ratio: Right 1.0 , Left 1.2 ICA: Right 101 cm/sec, Left 112 cm/sec CCA: Right 104 cm/sec, Left 95 cm/sec ECA: Right 96 cm/sec, Left 73 cm/sec Vertebral: Right 49 cm/sec antegrade, Left 41 cm/sec antegrade FINDINGS: Right Carotid: Mild arteriosclerotic plaque is visualized.The waveforms are within normal limits. Left Carotid: No significant plaque is visualized. The waveforms are within normal limits. Other: None. CONCLUSION: 1. Right Internal Carotid Artery: Findings indicate <50% stenosis. 2. Left Internal Carotid Artery: No significant stenosis or atherosclerotic plaque is visualized. Electronically signed by: Jordy Willis MD 12/23/2017 9:52 AM EDT
--- NOTE | 2017-12-23 10:05 | MR ---
EXAM DATE: 12/23/2017 9:57 AM EDT AGE/SEX: 62 years / Female INDICATIONS: CVA. Left sided weakness. CLINICAL DATA: This is the patient's initial encounter. Patient reports that signs and symptoms have been present for 1 day and indicates a pain score of 0/10. MEDICAL/SURGICAL HISTORY: Carcinoma, breast. Cholecystectomy. Hysterectomy. Mastectomy, left. Liver transplant. COMPARISON: [facility], CT HEAD W/O CONTRAST, 12/22/2017. . TECHNIQUE: Multiplanar, multisequence examination of the brain was performed without contrast. FINDINGS: Cerebrum: The ventricles are normal for age. No evidence of midline shift, mass lesion, hemorrhage or acute infarction. No extraaxial fluid collections are seen. The pituitary gland and suprasellar cistern are normal in configuration. White Matter: Scattered foci of bright T2 signal abnormalities are seen in the white matter and brai nstem. Posterior Fossa: The cerebellum is intact. The 4th ventricle is midline. The cerebellopontine angle is unremarkable. The cerebellar tonsils are normal in position. Diffusion Imaging: No focal areas of restricted diffusion are seen. No evidence of acute infarction . Extracranial: The visualized portions of the orbits and paranasal sinuses are unremarkable. CONCLUSION: 1. Chronic ischemic small vessel vasculopathy with similar changes in the brainstem. Electronically signed by: Joey Hughes MD 12/23/2017 10:03 AM EDT
--- NOTE | 2017-12-23 10:07 | MR ---
EXAM DATE: 12/23/2017 9:56 AM EDT AGE/SEX: 62 years / Female INDICATIONS: CVA. Left sided weakness. CLINICAL DATA: This is the patient's initial encounter. Patient reports that signs and symptoms have been present for 1 day and indicates a pain score of 0/10. MEDICAL/SURGICAL HISTORY: Carcinoma, breast. Hysterectomy. Cholecystectomy. Mastectomy, left. Liver transplant. COMPARISON: [facility], MR HEAD W/O CONTRAST, 12/23/2017. . TECHNIQUE: 3D [id number] MRA was performed. Source images, multiplanar STS MIP, and 3D volum e MIP reconstructions were reviewed. FINDINGS: There is excellent visualization of the major intracranial arteries out to the second-order branch ve ssels. There is no evidence for aneurysm, vessel truncation or stenosis, and no evidence for vascula r malformation. No definite antrectomy indicating artery. Left vertebral artery not seen in likely te rminates in PICA. There are some scattered intraluminal irregularities but no significant stenosis. CONCLUSION: 1. No large vessel stenosis or aneurysm. 2. Nonvisualization left vertebral artery Electronically signed by: Joey Hughes MD 12/23/2017 10:06 AM EDT
[2017-12-23] MEDS: Tacrolimus 0.5 MG Capsule PO SCH ×2 (10:14→21:09)
[2017-12-23] MEDS: Mycophenolate Mofetil 250 MG Capsule PO SCH ×4 (10:14→20:46)
[2017-12-23 10:24] LABS: Chol/HDL Ratio 2.41 Ratio; HDL Cholesterol 95.2 mg/dL (40.0-60.0)
--- NOTE | 2017-12-23 12:19 | MB ---
cc: Rj Pimentel MD DATE: 12/23/2017 HISTORY OF PRESENT ILLNESS: She is a 62-year-old right-handed woman with a history of hypertension, diabetes, liver transplant after hepatitis C and then tumor in her liver, some renal insufficiency, neuropathy, hypothyroidism, breast cancer 10 years ago on the left. She does not take an aspirin a day. No chest pain or palpitations, but she noted that she had about 3 days ago, some left arm numbness; no clumsiness or weakness. No numbness in the face or leg. One time just this morning, she had some pain shooting down from her left shoulder into her elbow region, but otherwise no shooting pains from the neck. She also developed about 3 days ago, a severe headache and some nausea. Apparently, her blood pressure was extremely high when she came in. She still has somewhat of a headache now. She does not usually have headaches, she tells me. REVIEW OF SYSTEMS: Denies any hypercholesterolemia, ID, stent, angioplasty, AFib, Coumadin, chest pain, palpitations, pulmonary disease, lupus, ulcer, seizure or stroke. SOCIAL HISTORY: Nonsmoker. Occasionally has a drink, but hardly ever; lives by herself. FAMILY HISTORY: Positive for cancer. Negative for seizure or stroke. MEDICATIONS AT HOME: 1. Tacrolimus 2. Zolpidem. 3. Sodium bicarbonate. 4. Pregabalin 50 b.i.d. 5. Oxycodone. 6. Omeprazole. 7. Mycophenolate 250 q.i.d. 8. Metformin. 9. Magnesium. 10. Losartan. 11. Ativan 1 mg b.i.d. 12. Thyroid medicine. 13. Carvedilol. PHYSICAL EXAMINATION: VITAL SIGNS: Initial blood pressure 186/92-185/88, now 175/84. NECK: There are no carotid or vertebral bruits. HEART: Regular rate and rhythm. I did not detect a murmur. NEUROLOGIC: Pupils are equal. Visual laird are full. Extraocular movements intact without nystagmus. Hearing is intact to finger rub bilaterally. Face was symmetric with normal sensation. Tongue was midline. There is no drift. She has normal strength in upper and lower extremities bilaterally including the left deltoid, biceps, finger extensors, FDI. Fast finger movements were symmetric and normal, especially on the left hand. Normal strength in bilateral lower extremities. DTRs are trace throughout. Toes downgoing bilaterally. Pinprick is intact throughout including the entire left upper extremity including the radial, median, and ulnar nerve distribution on the left and face. Sensation was intact bilaterally. She is not ataxic on [id number]. Speech is fluent. She is not aphasic. LABORATORY DATA: CBC is normal. UA is negative. BMP: Creatinine 1.7, otherwise normal. Troponin negative. LDL cholesterol 106, total cholesterol 230. Coags are normal. Her TSH was normal in 2005 here. UA here negative. IMAGIN. CAT scan of her brain was read as nothing acute. 2. She had an MRA [place]; nonvisualized left vertebral artery; otherwise negative review of those films. Does appear to be right vertebral dominant, otherwise unremarkable. 3. She had a carotid ultrasound; it was negative, less than 50% on the right, no narrowing in the left, mild plaque on the right only. 4. She had an MRI of the brain, some chronic changes in the brainstem, otherwise normal review of those films. 5. MRI diffusion imaging: No infarct acutely. FLAIR images: Some white matter changes in the mauricio bilaterally, otherwise normal; GRE is negative. No hemorrhage. IMPRESSION: Her neurological exam is normal. I am not sure why she is numb in the left arm. She is not actually numb to pinprick but she has an internal feeling of numbness there. She is certainly not weak there. She continues to have a headache. I would try to get her blood pressure down to 120/70. We will check an MRA of the neck and MRI of the cervical spine and check a sedimentation rate on her with a headache. She is a somewhat immunocompromised by her medication and her liver transplant. If nothing else shows up, LP could be considered; however, I think probably a low yield. But if she did not have a stroke on the MRI, nor did she have one clinically, we could treat it with a baby aspirin after the LP if that in fact is performed. GFR is only 30, so we will have to hold off on any contrast on the MRA of the neck. Cholesterol is a little bit high, but considering her liver problems, probably would not give her a statin; can check some additional labs on her. Overall, I thought she looked well, neurologically. Will also do an MR venogram of her brain and if everything is negative, she could be discharged on a baby aspirin unless an LP is thought appropriate by the medications team. MD KATYA Vela/angie , 11:42 AM , 11:56 AM
--- NOTE | 2017-12-23 12:47 | ECHRPT ---
Indication: CVA/TIA CONCLUSIONS BP: / HR: Rhythm: MEASUREMENTS (Male / Female) Normal Values Technical Quality:Technically difficult study 2D ECHO LV Diastolic Diameter PLAX 4.1 cm 4.2 - 5.9 / 3.9 - 5.3 cm LV Systolic Diameter PLAX 2.6 cm IVS Diastolic Thickness 1.0 cm 0.6 - 1.0 / 0.6 - 0.9 cm LVPW Diastolic Thickness 1.0 cm 0.6 - 1.0 / 0.6 - 0.9 cm LV Relative Wall Thickness 0.5 RV Internal Dim ED PLAX 3.3 cm LVOT Diameter 1.8 cm Aortic Root Diameter 3.0 cm LA Systolic Diameter LX 3.2 cm 3.0 - 4.0 / 2.7 - 3.8 cm DOPPLER AV Peak Velocity 103.0 cm/s AV Peak Gradient 4.2 mmHg LVOT Peak Velocity 84.9 cm/s LVOT Peak Gradient 2.9 mmHg AV Area Cont Eq pk 2.1 cm Mitral E Point Velocity 58.7 cm/s Mitral A Point Velocity 91.3 cm/s Mitral E to A Ratio 0.6 LV E' Lateral Velocity 6.4 cm/s Mitral E to LV E' Lateral Ratio 9.1 LV E' Septal Velocity 6.3 cm/s Mitral E to LV E' Septal Ratio 9.3 TR Peak Velocity 185.0 cm/s TR Peak Gradient 13.7 mmHg Right Atrial Pressure 5.0 mmHg Pulmonary Artery Systolic Pressu 18.7 mmHg Right Ventricular Systolic Press 18.7 mmHg PV Peak Velocity 115.0 cm/s PV Peak Gradient 5.3 mmHg FINDINGS LEFT VENTRICLE Normal left ventricular size. Wall thickness is normal. The left ventricular systolic function is normal with an estimated ejection fraction in the range of 60-65%. No regional wall motion abnormalities are present. RIGHT VENTRICLE Normal right ventricular size and systolic function. LEFT ATRIUM The left atrial size is normal. RIGHT ATRIUM The right atrial size is normal. ATRIAL SEPTUM Normal atrial septal thickness without atrial level shunting by limited color doppler interrogation. AORTA The aortic root and proximal ascending aorta are normal in size on limited imaging. MITRAL VALVE Structurally normal mitral valve. No mitral valve stenosis or regurgitation. AORTIC VALVE Trileaflet aortic valve. No aortic valve stenosis or regurgitation. TRICUSPID VALVE Structurally normal tricuspid valve. No tricuspid valve stenosis or regurgitation. PULMONARY VALVE No pulmonary valve regurgitation or stenosis. VESSELS The inferior vena cava is normal in size. PERICARDIUM No pericardial effusion. Beau Burnett (Electronically Signed) Final Date:23 December 2017 12:46
--- NOTE | 2017-12-23 14:05 | P.HP ---
History of Present Illness Primary Care Physician: Jason Rivera MD Chief Complaint: Left arm numbness History of Present Illness: This is a 62-year-old female with a history of liver transplant on immunosuppressants, hypertension, diabetes mellitus with neuropathy and retinopathy and chronic kidney disease stage III. She presents to the emergency room because of left arm numbness. Yesterday she was not feeling well and was nauseous and dizzy. During physical therapy, she also complained of left upper extremity numbness which has been ongoing for the past 3 days. She also reports of a violent headache and was not able to focus. Denies fever , chills, swallowing difficulty, confusion and focal weakness. She has chronic blurred vision. In the emergency department, her blood pressure was uncontrolled which improved after receiving IV Ativan and hydralazine. Patient states hypertension has not been well controlled but not as high when she presented in the ED. recently she was at [facility] for preop for liver biopsy when she was noted to have abnormal telemetry. She was sent to the ED where EKG did not replicate the abnormal findings. Also yesterday she was advised by her product development coordinator to undergo echocardiogram in light of the abnormal telemetry. So far her workup is unremarkable. Discussed with neurology, will have MRA of the neck and MRI of the C-spine. Because of the headache she will have a ESR and if persistent, patient will undergo lumbar puncture and MRV assuming pending workup is negative. Patient to receive aspirin after LP. Patient complaining of transient pain from the shoulder to the left elbow with neurology which the patient denied to me. History of C2 arthritis. All other systems reviewed negative Review of Systems All other systems reviewed negative except as stated in HPI PMFSH - History History Provided By: Patient - Medical History Medical History: Medical History (Last Reviewed 12/23/17 @ 09:06 by Dannielle Pendleton) Breast cancer H/O: hysterectomy - Surgical History Surgical History: Surgical History (Last Reviewed 12/23/17 @ 14:24 by Mihir Zhang MD) History of left mastectomy Hx of liver transplant Hx of cholecystectomy - Family History Family History: Family History (Last Updated 12/23/17 @ 14:25 by Mihir Zhang MD) Other CVA (cerebral vascular accident) - Social History I have reviewed the patient's Social History: Yes - Tobacco History Second Hand Smoke Exposure: No Tobacco Use In Past 30 Days: No Smoking Status: Never smoker - Alcohol History How Often Do You Have a Drink Containing Alcohol: 2 to 4 times a month - Substance Use History Substance History: No History of Abuse - Travel History Recent Travel in the [place] Within the Last 8 Weeks: No Recent Travel Out of the Country Within the Last 8 Weeks: No - Immunization History Tetanus Immunization: <5 Years Medications and Allergies Active Medications: Active Medications Acetaminophen (Tylenol) 650 mg PO Q4H PRN PRN Reason: Temp > 100.4 Last Admin: 12/22/17 22:57 Dose: 650 mg Bisacodyl (Dulcolax Supp) 10 mg RECTAL DAILY PRN PRN Reason: SEVERE CONSITIPATION Carvedilol (Coreg) 3.125 mg PO BID [facility] Last Admin: 12/23/17 09:03 Dose: 3.125 mg Clonidine HCl (Catapres) 0.1 mg PO Q6H PRN PRN Reason: SEE LABEL COMMENTS Dextrose (D50w Vial) 50 ml IV.PUSH UNSCH PRN PRN Reason: PER HYPOGLYCEMIA PROTOCOL Glucagon (Glucagon Inj) 1 mg OTHER UNSCH PRN PRN Reason: for Hypoglycemia Protocol Hydralazine HCl (Apresoline Inj) 20 mg IV.PUSH Q6H PRN PRN Reason: SEE LABEL COMMENTS Insulin Aspart (Novolog Insulin Correctional Sugar Inj) 0 unit SQ [facility]; Protocol Last Admin: 12/23/17 12:46 Dose: 1 unit Lactulose (Lactulose Liq) 30 ml PO DAILY PRN PRN Reason: SEVERE CONSITIPATION Levothyroxine Sodium (Synthroid) 75 mcg PO DAILY@0600 [facility] Last Admin: 12/23/17 06:39 Dose: Not Given Lorazepam (Ativan) 1 mg PO BID [facility] Last Admin: 12/23/17 09:03 Dose: 1 mg Losartan Potassium (Cozaar) 100 mg PO DAILY [facility] Last Admin: 12/23/17 09:02 Dose: 100 mg Magnesium Oxide (Mag-Ox) 400 mg PO TID [facility] Last Admin: 12/23/17 12:46 Dose: 400 mg Mycophenolate Mofetil (Cellcept) 250 mg PO QID [facility] Last Admin: 12/23/17 12:46 Dose: 250 mg Ondansetron HCl (Zofran Inj) 4 mg IV.PUSH Q6H PRN PRN Reason: NAUSEA OR VOMITING Oxycodone HCl (Roxicodone) 5 mg PO Q4H PRN PRN Reason: PAIN SCALE 3 TO 10 Pantoprazole Sodium (Protonix) 20 mg PO DAILY [facility] Last Admin: 12/23/17 09:03 Dose: 20 mg Polyethylene Glycol (Miralax) 17 gm PO DAILY PRN PRN Reason: CONSTIPATION Pregabalin (Lyrica) 50 mg PO BID [facility] Last Admin: 12/23/17 09:03 Dose: 50 mg Senna/Docusate Sodium (Lissy-Colace) 1 tab PO BID [facility] Last Admin: 12/23/17 09:02 Dose: 1 tab Sennosides (Senokot) 17.2 mg PO Q12H PRN PRN Reason: Moderate Constipation Sodium Bicarbonate (Sodium Bicarbonate) 650 mg PO BID [facility] Last Admin: 12/23/17 09:02 Dose: 650 mg Sodium Chloride (Ns Flush) 2 ml IV.FLUSH PRN PRN PRN Reason: FLUSH AFTER USING IV ACCESS Sodium Chloride (Ns Flush) 2 ml IV.FLUSH BID [facility] Last Admin: 12/23/17 10:14 Dose: 2 ml Sodium Chloride (Ns Flush) 2 ml IV.FLUSH PRN PRN PRN Reason: FLUSH AFTER USING IV ACCESS Tacrolimus (Prograf) 0.5 mg PO Q12H [facility] Last Admin: 12/23/17 10:14 Dose: 0.5 mg Zolpidem Tartrate (Ambien) 10 mg PO HS PRN PRN Reason: INSOMNIA Allergies Allergy/AdvReac Type Severity Reaction Status Date / Time shellfish derived Allergy Severe THROAT Verified 12/22/17 16:31 SWELLS UP, HIVES Home Medications Medication Instructions Recorded Confirmed Type carvedilol 3.125 mg PO BID 12/22/17 12/22/17 History levothyroxine 75 mcg PO DAILY 12/22/17 12/22/17 History lorazepam 1 mg PO BID 12/22/17 12/22/17 History losartan 100 mg PO DAILY 12/22/17 12/22/17 History magnesium oxide 400 mg PO TID 12/22/17 12/22/17 History metformin 250 mg PO DAILY 12/22/17 12/22/17 History mycophenolate mofetil 250 mg PO QID 12/22/17 12/22/17 History omeprazole 20 mg PO DAILY 12/22/17 12/22/17 History oxycodone 5 mg PO Q4-6H PRN 12/22/17 12/22/17 History polyethylene glycol 3350 17 g PO DAILY PRN 12/22/17 12/22/17 History pregabalin 50 mg PO BID 12/22/17 12/22/17 History sodium bicarbonate 650 mg PO BID 12/22/17 12/22/17 History tacrolimus 0.5 mg PO Q12H 12/22/17 12/23/17 History zolpidem 10 mg PO DAILY NEB 12/22/17 12/22/17 History Exam Vital signs: Vital Signs 12/22/17 15:13 12/22/17 16:09 12/22/17 16:31 Temperature 98.7 F Pulse Rate 68 86 Respiratory Rate 16 18 Blood Pressure 186/92 H 163/82 H Pulse Oximetry 98 98 12/22/17 16:32 12/22/17 17:33 12/22/17 18:58 Temperature Pulse Rate 78 80 Respiratory Rate 16 18 Blood Pressure 152/77 H 171/111 H Pulse Oximetry 98 98 98 12/22/17 19:35 12/22/17 20:00 12/22/17 21:45 Temperature 97 F L Pulse Rate 79 76 Respiratory Rate 16 20 Blood Pressure 185/88 H 150/80 H Pulse Oximetry 99 98 96 12/23/17 00:00 12/23/17 04:00 12/23/17 08:00 Temperature 97.1 F L 97 F L 97.3 F L Pulse Rate 75 80 76 Respiratory Rate 20 16 Blood Pressure 154/87 H 167/87 H 175/84 H Pulse Oximetry 98 97 12/23/17 12:00 Temperature 97.0 F L Pulse Rate 84 Respiratory Rate 17 Blood Pressure 121/71 Pulse Oximetry 99 Intake & Output 12/22/17 12/23/17 12/23/17 18:59 06:59 18:59 Intake Total 0 / 0 Output Total 30 / 30 Balance -30 / -30 Weight 74.6 kg 70.8 kg Intake: Oral 0 / 0 Output: Urine Other: # Voids 2 Weight On Admission 70.9 kg Narrative: GENERAL: Well-developed and well-nourished in no distress SKIN: Warm and dry. HEAD: Atraumatic. Normocephalic. EYES: Pupils equal and round. No scleral icterus. No injection or drainage. ENT: No nasal bleeding or discharge. Mucous membranes pink and moist. NECK: Trachea midline. No JVD. CARDIOVASCULAR: Regular rate and rhythm. RESPIRATORY: No accessory muscle use. Clear to auscultation. Breath sounds equal bilaterally. GASTROINTESTINAL: Abdomen soft, non-tender, nondistended. MUSCULOSKELETAL: Extremities without clubbing, cyanosis, or edema. No obvious deformities. NEUROLOGICAL: Awake and alert. No obvious cranial nerve deficits. Motor grossly within normal limits. Five out of 5 muscle strength in the arms and legs. Sensory slightly decreased in the left shoulder and arm. Normal speech. PSYCHIATRIC: Appropriate mood and affect; insight and judgment normal. Results - Labs CBC & Chem 7: 12/22/17 16:05 12/22/17 16:05 Labs: Laboratory Results - last 24 hr 12/22/17 12/22/17 12/22/17 16:05 16:05 16:05 CBC w Diff Auto diff final WBC 5.4 RBC 3.88 L Hgb 11.9 Hct 33.8 L MCV 87.1 MCH 30.6 MCHC 35.2 RDW 13.3 Plt Count 229 MPV 7.9 Neut % (Auto) 63.3 Lymph % (Auto) 19.0 Nolan % (Auto) 9.5 H Eos % (Auto) 5.0 H Baso % (Auto) 3.2 H Neut # (Auto) 3.4 Lymph # (Auto) 1.0 Nolan # (Auto) 0.5 Eos # (Auto) 0.3 Baso # (Auto) 0.2 WBC Differential . Differential Comment . PT 10.0 INR 1.0 APTT 21.7 L Sodium 137 Potassium 4.4 Chloride 103 Carbon Dioxide 25.8 Anion Gap 8 BUN 26 H Creatinine 1.70 H Estimated GFR 30 L POC Glucose Random Glucose 108 H Calcium 8.2 L Total Bilirubin 0.3 AST 16 ALT 17 Alkaline Phosphatase 61 Total Creatine Kinase 85 Troponin I Less than 0.02 L Total Protein 6.7 Albumin 3.4 Triglycerides Cholesterol LDL Cholesterol, Calc HDL Cholesterol Cholesterol/HDL Ratio Ur Collection Type Urine Color Urine Clarity Urine pH Ur Specific [place] Urine Protein Urine Glucose (UA) Urine Ketones Urine Occult Blood Urine Nitrate Urine Bilirubin Urine Urobilinogen Ur Leukocyte Esterase Urine WBC Ur Squamous Epith Cells Micro UA Comment Ur Microscopic Review Urine Culture Comments Urine Collection Time 12/22/17 12/22/17 12/23/17 16:58 23:16 05:25 CBC w Diff WBC RBC Hgb Hct MCV MCH MCHC RDW Plt Count MPV Neut % (Auto) Lymph % (Auto) Nolan % (Auto) Eos % (Auto) Baso % (Auto) Neut # (Auto) Lymph # (Auto) Nolan # (Auto) Eos # (Auto) Baso # (Auto) WBC Differential Differential Comment PT INR APTT Sodium Potassium Chloride Carbon Dioxide Anion Gap BUN Creatinine Estimated GFR POC Glucose 111 H Random Glucose Calcium Total Bilirubin AST ALT Alkaline Phosphatase Total Creatine Kinase Troponin I Total Protein Albumin Triglycerides 146 Cholesterol 230 H LDL Cholesterol, Calc 106 H HDL Cholesterol 95.2 H Cholesterol/HDL Ratio 2.41 Ur Collection Type Clean catch Urine Color Yellow Urine Clarity Clear Urine pH 6.5 Ur Specific [place] 1.010 Urine Protein 100 H Urine Glucose (UA) Negative Urine Ketones Negative Urine Occult Blood Negative Urine Nitrate Negative Urine Bilirubin Negative Urine Urobilinogen 0.2 Ur Leukocyte Esterase Negative Urine WBC 0-5 Ur Squamous Epith Cells 0-5 Micro UA Comment Culture not ind Ur Microscopic Review Microscopic reviewed Urine Culture Comments Culture not ind Urine Collection Time 1705 12/23/17 12/23/17 08:54 12:13 CBC w Diff WBC RBC Hgb Hct MCV MCH MCHC RDW Plt Count MPV Neut % (Auto) Lymph % (Auto) Nolan % (Auto) Eos % (Auto) Baso % (Auto) Neut # (Auto) Lymph # (Auto) Nolan # (Auto) Eos # (Auto) Baso # (Auto) WBC Differential Differential Comment PT INR APTT Sodium Potassium Chloride Carbon Dioxide Anion Gap BUN Creatinine Estimated GFR POC Glucose 104 176 H Random Glucose Calcium Total Bilirubin AST ALT Alkaline Phosphatase Total Creatine Kinase Troponin I Total Protein Albumin Triglycerides Cholesterol LDL Cholesterol, Calc HDL Cholesterol Cholesterol/HDL Ratio Ur Collection Type Urine Color Urine Clarity Urine pH Ur Specific [place] Urine Protein Urine Glucose (UA) Urine Ketones Urine Occult Blood Urine Nitrate Urine Bilirubin Urine Urobilinogen Ur Leukocyte Esterase Urine WBC Ur Squamous Epith Cells Micro UA Comment Ur Microscopic Review Urine Culture Comments Urine Collection Time - Imaging Impressions Chest X-Ray 12/22/17 15:51 CONCLUSION: No acute cardiopulmonary abnormality is identified name R. Head CT 12/22/17 15:51 CONCLUSION: 1. No acute intracranial abnormalities. . Carotid Doppler Study 12/23/17 00:00 CONCLUSION: 1. Right Internal Carotid Artery: Findings indicate <50% stenosis. 2. Left Internal Carotid Artery: No significant stenosis or atherosclerotic plaque is visualized. Head MRI 12/23/17 00:00 CONCLUSION: 1. Chronic ischemic small vessel vasculopathy with similar changes in the brainstem. Head MRA 12/23/17 00:00 CONCLUSION: 1. No large vessel stenosis or aneurysm. 2. Nonvisualization left vertebral artery Caprini VTE Risk Assessment Caprini VTE Risk Assessment: Moderate/High Risk (score >= 2) Caprini Risk Assessment Model: Point Value = 1 Point Value = 2 Point Value = 3 Point Value = 5 Age 41-60 Minor surgery BMI > 25 kg/m2 Swollen legs Varicose veins or History of unexplained or recurrent spontaneous Oral contraceptives or hormone replacement Sepsis (< 1 month) Serious lung disease, including pneumonia (< 1 month) Abnormal pulmonary function Acute myocardial infarction Congestive heart failure (< 1 month) History of inflammatory bowel disease Medical patient at bed rest Age 61-74 Arthroscopic surgery Major open surgery (> 45 min) Laparoscopic surgery (> 45 min) Malignancy Confined to bed (> 72 hours) Immobilizing plaster cast Central venous access Age >= 75 History of VTE Family history of VTE Factor V Leiden Prothrombin [id number] Lupus anticoagulant Anticardiolipin antibodies Elevated serum homocysteine Heparin-induced thrombocytopenia Other congenital or acquired thrombophilia Stroke (< 1 month) Elective arthroplasty Hip, pelvis, or leg fracture Acute spinal cord injury (< 1 month) Prophylaxis Regimen: Total Risk Factor Score Risk Level Prophylaxis Regimen 0-1 Low Early ambulation 2 Moderate Order ONE of the following: *Sequential Compression Device (SCD) *Heparin 5000 units SQ BID 3-4 Higher Order ONE of the following medications: *Heparin 5000 units SQ TID *Enoxaparin/Lovenox 40 mg SQ daily (WT < 150 kg, CrCl > 30 mL/min) *Enoxaparin/Lovenox 30 mg SQ daily (WT < 150 kg, CrCl > 10-29 mL/min) *Enoxaparin/Lovenox 30 mg SQ BID (WT < 150 kg, CrCl > 30 mL/min) AND/OR *Sequential Compression Device (SCD) 5 or more Highest Order ONE of the following medications: *Heparin 5000 units SQ TID (Preferred with Epidurals) *Enoxaparin/Lovenox 40 mg SQ daily (WT < 150 kg, CrCl > 30 mL/min) *Enoxaparin/Lovenox 30 mg SQ daily (WT < 150 kg, CrCl > 10-29 mL/min) *Enoxaparin/Lovenox 30 mg SQ BID (WT < 150 kg, CrCl > 30 mL/min) AND *Sequential Compression Device (SCD) Assessment and Plan - Plan This is a 62-year-old female with a history of liver transplant on immunosuppressants, hypertension, diabetes mellitus with neuropathy and retinopathy and chronic kidney disease stage III. She presents to the emergency room because of left arm numbness, nausea and dizziness. In the emergency department, her blood pressure was uncontrolled Left arm for extremity numbness, headache, nausea and dizziness. So far negative stroke workup which includes MRI of the brain, head MRI, carotid ultrasound and echocardiogram. EKG shows independently reviewed by me shows sInus rhythm. Telemetry is unremarkable. Discussed with neurology, will have MRA of the neck and MRI of the C-spine. Because of the headache she will have MRV and ESR and if persistent, patient will undergo lumbar puncture assuming pending workup is negative. Patient to receive aspirin after LP. Patient complaining of transient pain from the shoulder to the left elbow with neurology which the patient denied to me. History of C2 arthritis Hypertensive urgency. Improving increase Coreg and continue losartan. Monitor with as needed clonidine DVT prophylaxis with SCD and early ambulation Discharge Planning: PT recommends outpatient physical therapy
[2017-12-23 16:04] LABS: Hemoglobin A1c 5.4 % (4.3-6.0)
--- NOTE | 2017-12-23 16:23 | MR ---
EXAM DATE: 12/23/2017 4:17 PM EDT AGE/SEX: 62 years / Female INDICATIONS: CVA. Left sided weakness. CLINICAL DATA: This is the patient's initial encounter. Patient reports that signs and symptoms have been present for 1 day and indicates a pain score of 0/10. MEDICAL/SURGICAL HISTORY: Carcinoma, breast. Hysterectomy. Mastectomy, left. Liver transplant. COMPARISON: [facility], MR HEAD W/O CONTRAST, 12/23/2017. . TECHNIQUE: MR cerebral venography is performed without contrast. Source images, 3D volume MIP, and s liding thin slab MIP reconstructions were reviewed. FINDINGS: There is no evidence for any thrombus involving the superior sagittal sinus, straight sinus, sigmoid sinuses, right transverse sinus. The left transverse sinus demonstrates diminished flow within it pro bably due to dural invagination and/or asymmetrical size of the transverse sinuses without filling de fect to suggest a thrombus. CONCLUSION: 1. Unremarkable study. Electronically signed by: Lenny Burleson MD 12/23/2017 4:21 PM EDT
--- NOTE | 2017-12-23 16:26 | ECG ---
Date Performed: 12/22/2017 Time Performed: 16:27:35 PTAGE: 62 years EKG: Sinus rhythm NORMAL ECG PREVIOUS TRACING : 11/17/2013 11.33 Since the previous tracing, no significant change noted DOCTOR: Sergo Faith Interpretating Date/Time 12/23/2017 16:26:01
--- NOTE | 2017-12-23 17:00 | MR ---
EXAM DATE: 12/23/2017 4:53 PM EDT AGE/SEX: 62 years / Female INDICATIONS: Stroke. Left sided weakness. CLINICAL DATA: This is the patient's initial encounter. Patient reports that signs and symptoms have been present for 1 day and indicates a pain score of 0/10. MEDICAL/SURGICAL HISTORY: Carcinoma, breast. Hysterectomy. Mastectomy, left. Liver transplant. COMPARISON: [facility], US CAROTID DOPPLER BI, 12/23/2017. . TECHNIQUE: 3D time-of- flight MRA of the extracranial circulation was performed using a neurovascul ar coil. Post processing was performed including rotating sub-volume maximum intensity projections o f each carotid artery, rotating full-volume maximum intensity projections of both carotid arteries, s agittal and coronal sliding thin-slab reformations of each carotid artery, and left oblique sliding t hin-slab reformation through the aortic arch to include the origin of the arch branch vessels. FINDINGS: Aortic Arch : There is a three-vessel origin of the great vessels from the aorta. No evidence of o stial narrowing. Right Carotid : The common carotid artery is intact. The carotid bulb has a normal configuration wi thout ulceration or narrowing. The internal carotid artery lumen is smooth without stenosis. The ex ternal carotid artery is intact. Left Carotid : The common carotid artery is intact. The carotid bulb has a normal configuration wit hout ulceration or narrowing. The internal carotid artery lumen is smooth without stenosis. The ext ernal carotid artery is intact. Vertebrals : The left vertebral originates directly from the arch. It is diminutive in caliber. More superiorly it terminates in a PICA. The right vertebral is a sizable vessel and is a dominant blood supply to the basilar. CONCLUSION: 1. No hemodynamically significant carotid artery stenosis identified. 2. Diminutive left vertebral. Percent stenosis is calculated using the diameter of the stenotic region over the diameter of the nor mal distal internal carotid artery Electronically signed by: Nic Gaytan MD 12/23/2017 4:58 PM EDT
--- NOTE | 2017-12-23 17:04 | MR ---
EXAM DATE: 12/23/2017 4:53 PM EDT AGE/SEX: 62 years / Female INDICATIONS: Myelopathy. Left sided weakness. CLINICAL DATA: This is the patient's initial encounter. Patient reports that signs and symptoms have been present for 1 day and indicates a pain score of 0/10. MEDICAL/SURGICAL HISTORY: Carcinoma, breast. Mastectomy, left. Hysterectomy. Liver transplant. COMPARISON: . TECHNIQUE: Multiplanar, multisequence MRI examination of the cervical spine was performed without co ntrast. FINDINGS: The marrow signal appears intact, and the spinal cord appears intact for technique. There is loss of cervical lordosis. C2-C3: No appreciable compromise to the thecal sac, exiting nerve roots are seen. The neural foramin a are patent bilaterally. No appreciable thecal sac stenosis is seen. C3-C4: No appreciable compromise to the thecal sac, exiting nerve roots are seen. The neural foramin a are patent bilaterally. No appreciable thecal sac stenosis is seen. C4-C5: Moderate degenerative changes are present in the disc space and facets. There is slight neural foramina compromise on the left due to asymmetrical bulging disc and hypertrop hic changes. There is slight overall thecal sac stenosis without any cord compromise due to central disc/osteophyt e complex and hypertrophic changes. C5-C6: Significant degenerative changes are present in the disc space and facets. There is significant neural foramina compromise bilaterally due to bulging disc and hypertrophic gómez ges. There is moderate overall thecal sac stenosis with slight flattening of the spinal cord due to centra l disc/osteophyte complex and hypertrophic changes. C6-C7: Moderate degenerative changes are present in the disc space and facets. There is moderate neural foramina compromise bilaterally due to bulging disc and hypertrophic changes . There is anterior extradural impression and effacement of the anterior CSF space due to bulging disc and hypertrophic changes, however overall no significant thecal sac stenosis is seen. C7-T1: No appreciable compromise to the thecal sac, exiting nerve roots are seen. The neural foramin a are patent bilaterally. No appreciable thecal sac stenosis is seen. CONCLUSION: 1. Moderate thecal sac stenosis C5-C6, slight thecal sac stenosis C4-5. 2. Effacement of the anterior CSF space C6-7. 3. Neural foraminal compromise left C4-5, bilateral C5-C6, bilateral C6-7. Electronically signed by: Lenny Burleson MD 12/23/2017 5:03 PM EDT
[2017-12-23] MEDS: Carvedilol 6.25 MG Tablet PO SCH (20:41)
[2017-12-23 21:14] LABS: Free T4 (Free Thyroxine) 1.06 ng/dL (0.76-1.46); Vitamin B12 347 pg/mL (193-986)
[2017-12-24] MEDS: Levothyroxine 75 MCG Tablet PO SCH (06:17)
[2017-12-24 08:13] VITALS: RESP 18
[2017-12-24] MEDS: Insulin NovoLOG Aspart Correctional Sugar Inj SQ SCH ×4 (08:56→21:03)
[2017-12-24] MEDS: Pantoprazole Sodium 20 MG DR Tablet PO SCH (08:57)
[2017-12-24] MEDS: Senna/Docusate Sodium 8.6/50 MG Tablet PO SCH ×2 (08:58→20:57)
[2017-12-24] MEDS: Pregabalin 25 MG Capsule PO SCH ×2 (08:58→20:56)
[2017-12-24] MEDS: Magnesium Oxide 400 MG Tablet PO SCH ×3 (08:59→17:00)
[2017-12-24] MEDS: Mycophenolate Mofetil 250 MG Capsule PO SCH ×4 (08:59→20:57)
[2017-12-24] MEDS: Tacrolimus 0.5 MG Capsule PO SCH ×2 (08:59→21:03)
[2017-12-24] MEDS: LORazepam 1 MG Tablet PO SCH ×2 (08:59→20:57)
[2017-12-24] MEDS: Carvedilol 6.25 MG Tablet PO SCH ×2 (08:59→20:57)
--- NOTE | 2017-12-24 14:22 | P.PN ---
Subjective Interval history: Follow-up neuro symptoms. Improved headache scale of 3 out of 10. Agrees to proceed with LP. Still having numbness of the left upper extremity MRI of the cervical spine results discussed with patient. States she is receiving outpatient physical therapy. Case also discussed with neurology Physical Exam Vital signs: Vital Signs 12/23/17 15:49 12/23/17 18:53 12/23/17 20:00 Temperature 98.6 F 96.7 F L Pulse Rate 69 78 78 Respiratory Rate 16 20 Blood Pressure 142/78 H 130/72 Pulse Oximetry 96 96 12/24/17 00:00 12/24/17 04:00 12/24/17 08:00 Temperature 96.7 F L 96.1 F L 96.2 F L Pulse Rate 76 70 82 Respiratory Rate 20 20 18 Blood Pressure 131/80 123/76 146/78 H Pulse Oximetry 97 98 98 12/24/17 08:07 12/24/17 12:00 Temperature 96.0 F L Pulse Rate 84 78 Respiratory Rate 18 Blood Pressure 140/78 Pulse Oximetry 97 Intake & Output 12/23/17 12/24/17 12/24/17 18:59 06:59 18:59 Intake Total 480 / 480 Balance 480 / 480 Weight 71 kg Intake: Oral 480 / 480 Other: # Voids 3 3 Narrative: GENERAL: Well-developed and well-nourished in no distress SKIN: Warm and dry. CARDIOVASCULAR: Regular rate and rhythm. RESPIRATORY: No accessory muscle use. Clear to auscultation. Breath sounds equal bilaterally. GASTROINTESTINAL: Abdomen soft, non-tender, nondistended. MUSCULOSKELETAL: Extremities without clubbing, cyanosis, or edema. No obvious deformities. NEUROLOGICAL: Awake and alert. No obvious cranial nerve deficits. Motor grossly within normal limits. Five out of 5 muscle strength in the arms and legs. Sensory slightly decreased in the left shoulder and arm. Normal speech. PSYCHIATRIC: Appropriate mood and affect; insight and judgment normal. Results - Labs CBC & Chem 7: 12/22/17 16:05 12/22/17 16:05 Laboratory Results - last 24 hr 12/23/17 12/23/17 12/23/17 05:25 14:22 14:22 ESR 17 POC Glucose Hemoglobin A1c 5.4 C-Reactive Protein Less than 0.29 Vitamin B12 347 TSH 1.750 Free T4 1.06 Rheumatoid Factor Scrn Negative Rheumatoid Factor Titer Not Reportable 12/23/17 12/23/17 12/24/17 16:26 20:20 08:07 ESR POC Glucose 114 H 122 H 138 H Hemoglobin A1c C-Reactive Protein Vitamin B12 TSH Free T4 Rheumatoid Factor Scrn Rheumatoid Factor Titer 12/24/17 11:13 ESR POC Glucose 105 Hemoglobin A1c C-Reactive Protein Vitamin B12 TSH Free T4 Rheumatoid Factor Scrn Rheumatoid Factor Titer - Imaging Impressions Head/Brain Mag Res Venography 12/23/17 00:00 CONCLUSION: 1. Unremarkable study. Neck MRA 12/23/17 00:00 CONCLUSION: 1. No hemodynamically significant carotid artery stenosis identified. 2. Diminutive left vertebral. _ Percent stenosis is calculated using the diameter of the stenotic region over the diameter of the normal distal internal carotid artery _ Cervical Spine MRI 12/23/17 11:42 CONCLUSION: 1. Moderate thecal sac stenosis C5-C6, slight thecal sac stenosis C4-5. 2. Effacement of the anterior CSF space C6-7. 3. Neural foraminal compromise left C4-5, bilateral C5-C6, bilateral C6-7. - Procedures For LP Assessment and Plan - Plan This is a 62-year-old female with a history of liver transplant on immunosuppressants, hypertension, diabetes mellitus with neuropathy and retinopathy and chronic kidney disease stage III. She presents to the emergency room because of left arm numbness, nausea and dizziness. In the emergency department, her blood pressure was uncontrolled Left arm for extremity numbness, headache, nausea and dizziness. So far negative stroke workup which includes MRI of the brain, head MRI, carotid ultrasound and echocardiogram. MRV also negative. MRI of the cervical spine showed the following findings: 1. Moderate thecal sac stenosis C5-C6, slight thecal sac stenosis C4-5. 2. Effacement of the anterior CSF space C6-7. 3. Neural foraminal compromise left C4-5, bilateral C5-C6, bilateral C6-7. Continue PT, pain management with oxycodone and Lyrica. EKG shows sinus rhythm. Telemetry is unremarkable. ESR within normal limits. With persistent headache and immunocompromised status, patient will undergo LP. Patient to receive aspirin after LP. Follow-up pending hypercoagulable panel, methylmalonic acid, homocystine level, ERAN and RPR. Risk factor modification. A1c 5.4. Continue to hold metformin secondary to kidney dysfunction. Agree with neurology holding off statins at this time secondary to liver transplant history Hypertensive urgency. Improved ct Coreg and losartan. Monitor with as needed clonidine DVT prophylaxis with SCD and early ambulation Discharge Planning: PT recommends outpatient physical therapy
[2017-12-24 15:17] LABS: Lymphocytes, CSF 48 %; Monocytes,CSF 45 %; Neutrophils,CSF 7 %; RBC on Tube 4 0 /mm3
[2017-12-24 15:18] LABS: Anti-Nuclear Antibody Screen Neg (Neg)
--- NOTE | 2017-12-24 17:09 | IR ---
EXAM DATE: 12/24/2017 2:18 PM EDT AGE/SEX: 62 years / Female INDICATIONS: Patient presents with Headache and Left Arm numbness in need of Lumbar Puncture with Op ening Pressures for evaluation. CLINICAL DATA: This is the patient's initial encounter. Patient reports that signs and symptoms have been present for 2 weeks and indicates a pain score of 2/10. MEDICAL/SURGICAL HISTORY: . HTN, Diabetes Mellitus, Neuropathy, Retinopathy, Chronic Kidney Dis ease, Breast Cancer . Left Mastectomy, Liver Transplant, Cholecystectomy, Hysterectomy. COMPARISON: No prior exams available for comparison. FLUORO TIME (min): 1.13 IMAGE SERIES: 2 ACCESS SITE: L3 LUMBAR PUNCTURE TIME: 1353 hours OPENING PRESSURE: 15 cm of water CLOSING PRESSURE: not requested FLUID: Total volume of 12.5 cc of clear fluid was removed. Fluid was sent to lab for ordered studies. ; . . PROCEDURE: 1. Fluoroscopic guided lumbar puncture. The risks, benefits and alternatives to the procedure were explained and verbal and written consent w as obtained. The site was prepped in sterile fashion. Full sterile technique was used, including ca p, mask, sterile gloves and gown and a large sterile sheet. Hand hygiene and 2% chlorhexidine and/or betadine/alcohol prep was utilized per protocol for cutaneous antisepsis. The skin and subcutaneous tissues were infiltrated with local anesthetic solution. With fluoroscopic guidance the lumbar thecal sac was punctured at the level above. The fluid describ ed above was removed without difficulty. The patient tolerated the procedure well and there were no complications. CONCLUSION: Uncomplicated fluoroscopically guided lumbar puncture. Electronically signed by: David Clark MD 12/24/2017 5:07 PM EDT
--- NOTE | 2017-12-24 17:37 | P.PNNEU ---
Subjective Subjective Comments: nad 05/01 martinez now Active Medications: Active Medications Acetaminophen (Tylenol) 650 mg PO Q4H PRN PRN Reason: Temp > 100.4 Last Admin: 12/22/17 22:57 Dose: 650 mg Bisacodyl (Dulcolax Supp) 10 mg RECTAL DAILY PRN PRN Reason: SEVERE CONSITIPATION Carvedilol (Coreg) 6.25 mg PO BID [facility] Last Admin: 12/24/17 08:59 Dose: 6.25 mg Clonidine HCl (Catapres) 0.1 mg PO Q6H PRN PRN Reason: SEE LABEL COMMENTS Dextrose (D50w Vial) 50 ml IV.PUSH UNSCH PRN PRN Reason: PER HYPOGLYCEMIA PROTOCOL Glucagon (Glucagon Inj) 1 mg OTHER UNSCH PRN PRN Reason: for Hypoglycemia Protocol Hydralazine HCl (Apresoline Inj) 20 mg IV.PUSH Q6H PRN PRN Reason: SEE LABEL COMMENTS Insulin Aspart (Novolog Insulin Correctional Sugar Inj) 0 unit SQ [facility]; Protocol Last Admin: 12/24/17 16:25 Dose: Not Given Lactulose (Lactulose Liq) 30 ml PO DAILY PRN PRN Reason: SEVERE CONSITIPATION Levothyroxine Sodium (Synthroid) 75 mcg PO DAILY@0600 [facility] Last Admin: 12/24/17 06:17 Dose: 75 mcg Lorazepam (Ativan) 1 mg PO BID [facility] Last Admin: 12/24/17 08:59 Dose: 1 mg Losartan Potassium (Cozaar) 100 mg PO DAILY [facility] Last Admin: 12/24/17 08:59 Dose: 100 mg Magnesium Oxide (Mag-Ox) 400 mg PO TID [facility] Last Admin: 12/24/17 17:00 Dose: 400 mg Mycophenolate Mofetil (Cellcept) 250 mg PO QID [facility] Last Admin: 12/24/17 17:00 Dose: 250 mg Ondansetron HCl (Zofran Inj) 4 mg IV.PUSH Q6H PRN PRN Reason: NAUSEA OR VOMITING Oxycodone HCl (Roxicodone) 5 mg PO Q4H PRN PRN Reason: PAIN SCALE 3 TO 10 Pantoprazole Sodium (Protonix) 20 mg PO DAILY [facility] Last Admin: 12/24/17 08:57 Dose: 20 mg Polyethylene Glycol (Miralax) 17 gm PO DAILY PRN PRN Reason: CONSTIPATION Pregabalin (Lyrica) 50 mg PO BID [facility] Last Admin: 12/24/17 08:58 Dose: 50 mg Senna/Docusate Sodium (Lissy-Colace) 1 tab PO BID [facility] Last Admin: 12/24/17 08:58 Dose: Not Given Sennosides (Senokot) 17.2 mg PO Q12H PRN PRN Reason: Moderate Constipation Sodium Bicarbonate (Sodium Bicarbonate) 650 mg PO BID [facility] Last Admin: 12/24/17 08:59 Dose: 650 mg Sodium Chloride (Ns Flush) 2 ml IV.FLUSH PRN PRN PRN Reason: FLUSH AFTER USING IV ACCESS Sodium Chloride (Ns Flush) 2 ml IV.FLUSH BID [facility] Last Admin: 12/24/17 12:46 Dose: 2 ml Sodium Chloride (Ns Flush) 2 ml IV.FLUSH PRN PRN PRN Reason: FLUSH AFTER USING IV ACCESS Tacrolimus (Prograf) 0.5 mg PO Q12H [facility] Last Admin: 12/24/17 08:59 Dose: 0.5 mg Zolpidem Tartrate (Ambien) 10 mg PO HS PRN PRN Reason: INSOMNIA Allergies/Adverse Reactions: Allergies Allergy/AdvReac Type Severity Reaction Status Date / Time shellfish derived Allergy Severe THROAT Verified 12/22/17 16:31 SWELLS UP, HIVES Physical Exam Vital signs: Vital Signs 12/23/17 18:53 12/23/17 20:00 12/24/17 00:00 Temperature 98.6 F 96.7 F L 96.7 F L Pulse Rate 78 78 76 Respiratory Rate 16 20 20 Blood Pressure 142/78 H 130/72 131/80 Pulse Oximetry 96 96 97 12/24/17 04:00 12/24/17 08:00 12/24/17 08:07 Temperature 96.1 F L 96.2 F L Pulse Rate 70 82 84 Respiratory Rate 20 18 Blood Pressure 123/76 146/78 H Pulse Oximetry 98 98 12/24/17 12:00 12/24/17 16:46 Temperature 96.0 F L 96.3 F L Pulse Rate 78 79 Respiratory Rate 18 18 Blood Pressure 140/78 145/83 H Pulse Oximetry 97 98 Intake & Output 12/23/17 12/24/17 12/24/17 18:59 06:59 18:59 Intake Total 480 / 480 Balance 480 / 480 Weight 71 kg Intake: Oral 480 / 480 Other: # Voids 3 3 3 Narrative: vfff face sym 5/5 lue and pin nl lue Objective Laboratory Results - last 24 hr 12/23/17 12/23/17 12/23/17 05:25 14:22 14:22 ESR 17 POC Glucose Hemoglobin A1c 5.4 Vitamin B12 347 Free T4 1.06 CSF Volume (1) CSF Supernat Color (1) CSF Gross Blood (1) CSF Volume (2) CSF Supernat Color (2) CSF Gross Blood (2) CSF Volume (3) CSF Supernat Color (3) CSF Gross Blood (3) CSF Volume (4) CSF Supernat Color (4) CSF Gross Blood (4) CSF WBC (4) CSF RBC (4) CSF Neutrophils % CSF Lymphocytes % CSF Monocytes % Rheumatoid Factor Scrn Negative Rheumatoid Factor Titer Not Reportable LUIS Screen RPR 12/23/17 12/23/17 12/24/17 14:22 20:20 08:07 ESR POC Glucose 122 H 138 H Hemoglobin A1c Vitamin B12 Free T4 CSF Volume (1) CSF Supernat Color (1) CSF Gross Blood (1) CSF Volume (2) CSF Supernat Color (2) CSF Gross Blood (2) CSF Volume (3) CSF Supernat Color (3) CSF Gross Blood (3) CSF Volume (4) CSF Supernat Color (4) CSF Gross Blood (4) CSF WBC (4) CSF RBC (4) CSF Neutrophils % CSF Lymphocytes % CSF Monocytes % Rheumatoid Factor Scrn Rheumatoid Factor Titer LUIS Screen Neg RPR Nonreactive 12/24/17 12/24/17 12/24/17 11:13 13:53 16:21 ESR POC Glucose 105 89 Hemoglobin A1c Vitamin B12 Free T4 CSF Volume (1) 3.2 CSF Supernat Color (1) Clear CSF Gross Blood (1) 0 CSF Volume (2) 3.3 CSF Supernat Color (2) Clear CSF Gross Blood (2) 0 CSF Volume (3) 1.8 CSF Supernat Color (3) Clear CSF Gross Blood (3) 0 CSF Volume (4) 2.5 CSF Supernat Color (4) Clear CSF Gross Blood (4) 0 CSF WBC (4) 1 CSF RBC (4) 0 CSF Neutrophils % 7 CSF Lymphocytes % 48 CSF Monocytes % 45 Rheumatoid Factor Scrn Rheumatoid Factor Titer LUIS Screen RPR Microbiology 12/24/17 13:53 Gram Stain - Final Lumbar Puncture Review/Management - Review/Management Plan: impp mri c spine mild djd no sign spinal stenosis mra neck carotids ok mrv nl esr rpr luis all labs nl LP neg she can dc home and take a asa 81 mg start on wednesday get bp to 120/ leyva neg if lue numb persists i can check emg lue in office op/p but exam nl and leyva neg
[2017-12-24 20:29] LABS: Total Protein,CSF 46.8 mg/dL (15.0-45.0)
[2017-12-25] MEDS: Levothyroxine 75 MCG Tablet PO SCH (05:49)
[2017-12-25 08:20] VITALS: TEMP 96; O2SAT 94
[2017-12-25 08:21] VITALS: BP 156/86
[2017-12-25] MEDS: Pregabalin 25 MG Capsule PO SCH (08:28)
[2017-12-25] MEDS: Magnesium Oxide 400 MG Tablet PO SCH (08:28)
[2017-12-25] MEDS: LORazepam 1 MG Tablet PO SCH (08:28)
[2017-12-25] MEDS: Senna/Docusate Sodium 8.6/50 MG Tablet PO SCH (08:28)
[2017-12-25] MEDS: Carvedilol 6.25 MG Tablet PO SCH (08:28)
[2017-12-25] MEDS: Mycophenolate Mofetil 250 MG Capsule PO SCH (08:29)
[2017-12-25 09:07] VITALS: PULSE 90
--- NOTE | 2017-12-25 10:20 | P.DS ---
Date of admission: 12/22/17 18:37 Primary care physician: Jason Rivera MD Brief History from admission: This is a 62-year-old female with a history of liver transplant on immunosuppressants, hypertension, diabetes mellitus with neuropathy and retinopathy and chronic kidney disease stage III. She presents to the emergency room because of left arm numbness. Yesterday she was not feeling well and was nauseous and dizzy. During physical therapy, she also complained of left upper extremity numbness which has been ongoing for the past 3 days. She also reports of a violent headache and was not able to focus. Denies fever , chills, swallowing difficulty, confusion and focal weakness. She has chronic blurred vision. In the emergency department, her blood pressure was uncontrolled which improved after receiving IV Ativan and hydralazine. Patient states hypertension has not been well controlled but not as high when she presented in the ED. recently she was at [facility] for preop for liver biopsy when she was noted to have abnormal telemetry. She was sent to the ED where EKG did not replicate the abnormal findings. Also yesterday she was advised by her nursing staffing coordinator to undergo echocardiogram in light of the abnormal telemetry. So far her workup is unremarkable. Discussed with neurology, will have MRA of the neck and MRI of the C-spine. Because of the headache she will have a ESR and if persistent, patient will undergo lumbar puncture and MRV assuming pending workup is negative. Patient to receive aspirin after LP. Patient complaining of transient pain from the shoulder to the left elbow with neurology which the patient denied to me. History of C2 arthritis. All other systems reviewed negative DS: Summary Hospital Course: This is a 62-year-old female with a history of liver transplant on immunosuppressants, hypertension, diabetes mellitus with neuropathy and retinopathy and chronic kidney disease stage III. She presents to the emergency room because of left arm numbness, nausea and dizziness. In the emergency department, her blood pressure was uncontrolled Left arm for extremity numbness, headache, nausea and dizziness. So far negative stroke workup which includes MRI of the brain, head MRI, carotid ultrasound and echocardiogram. MRV also negative. MRI of the cervical spine showed the following findings: 1. Moderate thecal sac stenosis C5-C6, slight thecal sac stenosis C4-5. 2. Effacement of the anterior CSF space C6-7. 3. Neural foraminal compromise left C4-5, bilateral C5-C6, bilateral C6-7. Continue PT, pain management with oxycodone and Lyrica. EKG shows sinus rhythm. Telemetry is unremarkable. ESR within normal limits. With persistent headache and immunocompromised status, lumbar puncture was performed which so far is also negative. Patient to start aspirin once a day per neurology however patient has been advised to clear with transplant physician and nephrology because of the plan for liver and kidney biopsy. Follow-up pending hypercoagulable panel, methylmalonic acid and homocystine level. Risk factor modification. A1c 5.4. Continue to hold metformin secondary to kidney dysfunction. Agree with neurology holding off statins at this time secondary to liver transplant history Hypertensive urgency. Improved ct Coreg and losartan. Monitor with as needed clonidine DVT prophylaxis with SCD and early ambulation - Time Spent with Patient Total time spent providing and/or coordinating discharge services: Greater than 30 minutes - Quality: VTE Deep Vein Thrombosis/Pulmonary Embolism Present on Admission: No Exam Vital signs: Vital Signs 12/24/17 12:00 12/24/17 16:46 12/24/17 17:39 Temperature 96.0 F L 96.3 F L Pulse Rate 78 79 86 Respiratory Rate 18 18 Blood Pressure 140/78 145/83 H Pulse Oximetry 97 98 12/24/17 20:00 12/25/17 00:00 12/25/17 04:00 Temperature 97 F L 97 F L 96.6 F L Pulse Rate 78 78 62 Respiratory Rate 18 18 18 Blood Pressure 144/86 H 140/86 140/92 H Pulse Oximetry 98 99 99 12/25/17 08:00 Temperature 96.0 F L Pulse Rate 90 Respiratory Rate 18 Blood Pressure 156/86 H Pulse Oximetry 94 L Intake & Output 12/24/17 12/25/17 12/25/17 18:59 06:59 18:59 Intake Total 240 / 240 Balance 240 / 240 Weight 71.2 kg Intake: Oral 240 / 240 Other: # Voids 3 2 Narrative: GENERAL: Well-developed and well-nourished in no distress SKIN: Warm and dry. CARDIOVASCULAR: Regular rate and rhythm. RESPIRATORY: No accessory muscle use. Clear to auscultation. Breath sounds equal bilaterally. GASTROINTESTINAL: Abdomen soft, non-tender, nondistended. MUSCULOSKELETAL: Extremities without clubbing, cyanosis, or edema. No obvious deformities. NEUROLOGICAL: Awake and alert. No obvious cranial nerve deficits. Motor grossly within normal limits. Five out of 5 muscle strength in the arms and legs. Sensory slightly decreased in the left shoulder and arm. Normal speech. PSYCHIATRIC: Appropriate mood and affect; insight and judgment normal. Results Procedures completed during hospitalization: For LP Pending studies at discharge: Pending at discharge 12/24/17 Cytology [PTH] Stat Labs on day of discharge: Labs from last 24 hours 12/25/17 12/24/17 12/24/17 07:21 21:02 16:21 POC Glucose 91 129 H 89 CSF Volume (1) CSF Supernat Color (1) CSF Gross Blood (1) CSF Volume (2) CSF Supernat Color (2) CSF Gross Blood (2) CSF Volume (3) CSF Supernat Color (3) CSF Gross Blood (3) CSF Volume (4) CSF Supernat Color (4) CSF Gross Blood (4) CSF WBC (4) CSF RBC (4) CSF Neutrophils % CSF Lymphocytes % CSF Monocytes % CSF Glucose CSF LDH CSF Total Protein CSF Cryptococcus Ag CSF N.mening B/E.coli K1 CSF N.meningitidis A/Y ERAN Screen RPR H.influenzae Type B Ag N. meningitidis C/W 135 Group B Strep Antigen S. pneumoniae Antigen 12/24/17 12/24/17 12/24/17 13:53 13:53 13:53 POC Glucose CSF Volume (1) CSF Supernat Color (1) CSF Gross Blood (1) CSF Volume (2) CSF Supernat Color (2) CSF Gross Blood (2) CSF Volume (3) CSF Supernat Color (3) CSF Gross Blood (3) CSF Volume (4) CSF Supernat Color (4) CSF Gross Blood (4) CSF WBC (4) CSF RBC (4) CSF Neutrophils % CSF Lymphocytes % CSF Monocytes % CSF Glucose 68 CSF LDH Cancelled 18 CSF Total Protein Cancelled 46.8 H CSF Cryptococcus Ag CSF N.mening B/E.coli K1 CSF N.meningitidis A/Y ERAN Screen RPR H.influenzae Type B Ag N. meningitidis C/W 135 Group B Strep Antigen S. pneumoniae Antigen 12/24/17 12/24/17 12/24/17 13:53 13:53 13:53 POC Glucose CSF Volume (1) 3.2 CSF Supernat Color (1) Clear CSF Gross Blood (1) 0 CSF Volume (2) 3.3 CSF Supernat Color (2) Clear CSF Gross Blood (2) 0 CSF Volume (3) 1.8 CSF Supernat Color (3) Clear CSF Gross Blood (3) 0 CSF Volume (4) 2.5 CSF Supernat Color (4) Clear CSF Gross Blood (4) 0 CSF WBC (4) 1 CSF RBC (4) 0 CSF Neutrophils % 7 CSF Lymphocytes % 48 CSF Monocytes % 45 CSF Glucose CSF LDH CSF Total Protein CSF Cryptococcus Ag Pending CSF N.mening B/E.coli K1 Pending CSF N.meningitidis A/Y Pending ERAN Screen RPR H.influenzae Type B Ag Pending N. meningitidis C/W 135 Pending Group B Strep Antigen Pending S. pneumoniae Antigen Pending 12/24/17 12/23/17 11:13 14:22 POC Glucose 105 CSF Volume (1) CSF Supernat Color (1) CSF Gross Blood (1) CSF Volume (2) CSF Supernat Color (2) CSF Gross Blood (2) CSF Volume (3) CSF Supernat Color (3) CSF Gross Blood (3) CSF Volume (4) CSF Supernat Color (4) CSF Gross Blood (4) CSF WBC (4) CSF RBC (4) CSF Neutrophils % CSF Lymphocytes % CSF Monocytes % CSF Glucose CSF LDH CSF Total Protein CSF Cryptococcus Ag CSF N.mening B/E.coli K1 CSF N.meningitidis A/Y ERAN Screen Neg RPR Nonreactive H.influenzae Type B Ag N. meningitidis C/W 135 Group B Strep Antigen S. pneumoniae Antigen Preliminary micro results at discharge 12/24/17 13:53 CSF Culture - Preliminary Lumbar Puncture No growth in 24 hours - Impressions ITS Impressions Chest X-Ray 12/22/17 15:51 CONCLUSION: No acute cardiopulmonary abnormality is identified name R. Head CT 12/22/17 15:51 CONCLUSION: 1. No acute intracranial abnormalities. . Carotid Doppler Study 12/23/17 00:00 CONCLUSION: 1. Right Internal Carotid Artery: Findings indicate <50% stenosis. 2. Left Internal Carotid Artery: No significant stenosis or atherosclerotic plaque is visualized. Head MRI 12/23/17 00:00 CONCLUSION: 1. Chronic ischemic small vessel vasculopathy with similar changes in the brainstem. Head MRA 12/23/17 00:00 CONCLUSION: 1. No large vessel stenosis or aneurysm. 2. Nonvisualization left vertebral artery Head/Brain Mag Res Venography 12/23/17 00:00 CONCLUSION: 1. Unremarkable study. Neck MRA 12/23/17 00:00 CONCLUSION: 1. No hemodynamically significant carotid artery stenosis identified. 2. Diminutive left vertebral. _ Percent stenosis is calculated using the diameter of the stenotic region over the diameter of the normal distal internal carotid artery _ Cervical Spine MRI 12/23/17 11:42 CONCLUSION: 1. Moderate thecal sac stenosis C5-C6, slight thecal sac stenosis C4-5. 2. Effacement of the anterior CSF space C6-7. 3. Neural foraminal compromise left C4-5, bilateral C5-C6, bilateral C6-7. Lumbar Puncture Fluoroscopy 12/24/17 10:36 CONCLUSION: Uncomplicated fluoroscopically guided lumbar puncture. Discharge Plan - Discharge Disposition Patient Disposition: 01 Discharge Home - Discharge Condition Condition: Stable - Discharge Order Discharge Orders: Discharge Order (Routine); Ordered 12/25/17 Ordered By: Mihir Zhang - Physicians Team Primary Care Provider: Jason Rivera Attending Provider: Mihir Zhang Other Providers: Rj Forbes MD ; Ilana Case MD
[2017-12-25] MEDS: Insulin NovoLOG Aspart Correctional Sugar Inj SQ SCH (10:44)
[2017-12-25] MEDS: Pantoprazole Sodium 20 MG DR Tablet PO SCH (10:45)
[2017-12-26 07:52] LABS: Dil Russell Viper Venom Conf ( ND (NEGATIVE); Dil Russell Viper Venom Time M ND (CORRECTED); Lupus Anticoagulant PTT Screen 32 seconds (< OR = 40)
[2017-12-27 23:54] LABS: Homocysteine (Cardiovascular) 19.6 umol/L (<10.4)
[2017-12-28 03:51] LABS: Activated Protein C Resistance 5.1 ratio (> OR = 2.1)
[2017-12-29 16:02] LABS: Factor V Leiden Mutation Heterozygous (Negative); Protein C Antigen 134 % (70-150)
== END 2017-12-25 10:36 | disposition home or self-care (01) ==
LOC: PHED 14:56 → PHEDA 14:56 → PH3 19:40
PROVIDERS: ADMIT Internal Medicine; ATTEND Internal Medicine